=== PATIENT | male | born 1965 | race Caucasian/White ===

== ENCOUNTER 2017-07-27 21:35 | Inpatient (IN) | payer OTHER ==
--- NOTE | 2017-07-27 21:47 | PDOC ---
Rapid Medical Evaluation Chief Complaint: Back Pain Time Seen by Provider: 07/27/17 21:44 Medical Evaluation: Allergies Allergy/AdvReac Type Severity Reaction Status Date / Time No Known Allergies Allergy Verified 07/30/11 22:55 07/27/17 21:46 This is a 51 year old male with chronic EtOH abuse, depression, and Afib (no AC because of frequent falls) brought in by significant other with report of elevated liver enzymes and low platelets. Has also been having tremors and unsteady gait. + Jaundice + Asterixis + Unsteady gait V/s notable for BP 92/32 Labs including CBC, CMP, urine toxicology, acetaminophen, salicylates, TSH, B12 , Folate, Ammonia Head CT FALLS RISK 07/27/17 21:49 Discharge Disposition - Referrals Referrals: Frank Cosme MD [Primary Care Provider] - - Patient Instructions - Post Discharge Activity
[2017-07-27 21:52] VITALS: BMI 18.8
[2017-07-27] MEDS ORDERED: FOLIC ACID INJECTION - 1 MG, THIAMINE HCL 100 MG, MULTIVIT INJECTION ADULT 10 ML in SOD... IVPB ONE (22:03)
[2017-07-27 22:27] LABS: BASO % 0.2 % (0-2.0); EOS % 0.2 % (0-4.5); HEMATOCRIT 28.3 % (35.4-49); HEMOGLOBIN 9.6 GM/dL (11.7-16.9); LYMPH % 21.2 % (8-40); MCH 33.3 pg (25.7-33.7); MEAN PLT VOLUME 9.6 fl (7.5-11.1); MONO % 10.8 % (3.8-10.2); NEUT % 67.6 % (42.8-82.8); PLATELET COUNT 126 K/MM3 (134-434); RBC 2.89 M/mm3 (4.00-5.60); RDW 18.6 % (11.9-15.9); WHITE BLOOD COUNT 7.7 K/mm3 (4.0-10.0)
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
[2017-07-27 22:55] LABS: ALBUMIN 2.1 g/dl (3.4-5.0); ANION GAP 11 (8-16); BILIRUBIN,TOTAL 4.9 mg/dL (0.2-1.0); BLOOD UREA NITROGEN 9 mg/dL (7-18); CHLORIDE 90 mmol/L (98-107); CO2 28 mmol/L (21-32); CREATININE 1.1 mg/dL (0.7-1.3); GLUCOSE,RANDOM 110 mg/dL (74-106); POTASSIUM 3.6 mmol/L (3.5-5.1); SGOT/AST 124 U/L (15-37); SGPT/ALT 72 U/L (12-78); SODIUM 129 mmol/L (136-145); TOT PROT 6.4 g/dl (6.4-8.2)
[2017-07-27 22:56] LABS: ALK PHOS 530 U/L (45-117)
[2017-07-27 23:00] LABS: ACETAMINOPHEN < 2.0 ug/ml (10.0-30.0)
[2017-07-27 23:02] LABS: SALICYLATE < 4.0 mg/dl (0.0-30.0)
[2017-07-28] MEDS ORDERED: AZITHROMYCIN IVPB 500 MG in DEXTROSE 5%-WATER - 250 ML IVPB ONE (00:02)
[2017-07-28] MEDS ORDERED: cefTRIAXone 1 GM/50 ML BAG (PRE-DOCKED) IVPB ONE (00:02)
[2017-07-28] MEDS ORDERED: SODIUM CHLORIDE 0.9% 1000 ML INFUS.BAG IV ONE (00:20)
[2017-07-28] MEDS ORDERED: CEFTRIAXONE 1 GM/50 ML BAG ONE (00:22)
[2017-07-28] MEDS ORDERED: AZITHROMYCIN IVPB 250 ML IVPB ONE (00:22)
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
[2017-07-28 01:34] LABS: INR 1.04 (0.82-1.09); PROTHROMBIN TIME (PATIENT) 11.7 SEC (9.98-11.88)
--- NOTE | 2017-07-28 01:50 | PN ---
Teaching Attending Note Name of Resident: Vasile Costello ATTENDING PHYSICIAN STATEMENT I saw and evaluated the patient. I reviewed the resident's note and discussed the case with the resident. I agree with the resident's findings and plan as documented. SUBJECTIVE: 51year old male that presents to the ed accompanied by his due to jaundice and abnormal laboratory results OBJECTIVE: Vital Signs Temperature 98.5 F 07/27/17 21:45 Pulse Rate 97 H 07/27/17 21:45 Respiratory Rate 17 07/27/17 21:45 Blood Pressure 93/67 07/27/17 21:45 O2 Sat by Pulse Oximetry (%) 97 07/27/17 21:45 YES: Pupils equal, round and reactive to light, extraocular movements intact, sclera icteric, EARS, NOSE, THROAT: oropharynx clear without exudates. dry mucous membrane LUNGS: Breath sounds equal, clear to auscultation bilaterally. No wheezes, and no crackles. No accessory muscle use. HEART: s1s2 normal irregular ABDOMEN: Soft, nontender, not distended, normoactive bowel sounds, no guarding, no rebound, no masses. liver lower border palpable 2 finger below costal margin , visible veins present on flank. no spiderangioma UPPER EXTREMITIES: 2+ pulses, warm, no cordova erythema, no flapping tremors. LOWER EXTREMITIES: warm, well-perfused. No calf tenderness. No peripheral edema. ASSESSMENT AND PLAN: 1. Acute liver cirrhosis ( likley alcoholic ) - MELD 24 . - monitor LFT , BILI - PO prednisone - GI eval 2. Hyponatremia- hypovolemic vs beer potomania - will start IVF NS @75 - repeat sodium 3. Abnormal imaging of the lung suggestive of possible RLL pneumonia , aspiration ? - received rocephine and zithromax in ED 4. Chronic Encephalopathy - likely Wernicke - thiamine - folic acid See H&P for full details
[2017-07-28] MEDS ORDERED: predniSONE 20 MG TABLET (UD) PO ONE (01:53)
[2017-07-28] MEDS ORDERED: LIDOCAINE 5% TOPICAL PATCH TP ONE (02:15)
[2017-07-28] MEDS ORDERED: POTASSIUM CHLORIDE ORAL LIQUID 20 MEQ/15 ML PO ONE (02:20)
[2017-07-28] MEDS ORDERED: MAGNESIUM OXIDE 400 MG TABLET (FP) PO ONE (02:20)
[2017-07-28] MEDS ORDERED: BENZOCAINE/MENTH/CETYLPYRD CL 1 EACH LOZENGE MM PRN (03:50)
[2017-07-28] MEDS: SODIUM CHLORIDE 1,000 ML IV SCH (03:52)
[2017-07-28 08:41] LABS: BASO % 0.2 % (0-2.0); EOS % 0.1 % (0-4.5); HEMATOCRIT 25.4 % (35.4-49); HEMOGLOBIN 8.4 GM/dL (11.7-16.9); LYMPH % 13.2 % (8-40); MCH 32.6 pg (25.7-33.7); MCHC 33.3 g/dl (32.0-35.9); MEAN CELL VOLUME 98.1 fl (80-96); MEAN PLT VOLUME 9.1 fl (7.5-11.1); MONO % 6.3 % (3.8-10.2); NEUT % 80.2 % (42.8-82.8); PLATELET COUNT 81 K/MM3 (134-434); RBC 2.59 M/mm3 (4.00-5.60); WHITE BLOOD COUNT 3.2 K/mm3 (4.0-10.0)
[2017-07-28 08:43] LABS: ALBUMIN 1.7 g/dl (3.4-5.0); ANION GAP 7 (8-16); BLOOD UREA NITROGEN 6 mg/dL (7-18); CALCIUM 7.3 mg/dL (8.5-10.1); CHLORIDE 99 mmol/L (98-107); CO2 27 mmol/L (21-32); CREATININE 0.7 mg/dL (0.7-1.3); GLUCOSE,RANDOM 152 mg/dL (74-106); POTASSIUM 4.4 mmol/L (3.5-5.1); SGOT/AST 93 U/L (15-37); SGPT/ALT 56 U/L (12-78); SODIUM 133 mmol/L (136-145)
[2017-07-28 08:45] LABS: ALK PHOS 425 U/L (45-117); BILIRUBIN,TOTAL 4.9 mg/dL (0.2-1.0); TOT PROT 5.3 g/dl (6.4-8.2)
[2017-07-28 09:20] LABS: BILIRUBIN,DIRECT 3.9 mg/dL (0.0-0.2); MAGNESIUM 1.8 mg/dL (1.8-2.4)
[2017-07-28] MEDS ORDERED: PT OWN MED DRAWER 7, Y5N ONE ×2 (09:26→15:22)
[2017-07-28] MEDS: THIAMINE HCL 100 MG TABLET (FP) PO SCH (09:47)
[2017-07-28] MEDS: PANTOPRAZOLE SOD 40 MG SUSPENSION PACKET PO SCH (09:47)
--- NOTE | 2017-07-28 09:59 | EKG ---
Test Reason : Blood Pressure : / mmHG Vent. Rate : 083 BPM Atrial Rate : 083 BPM P-R Int : 132 ms QRS Dur : 094 ms QT Int : 402 ms P-R-T Axes : 073 054 065 degrees QTc Int : 472 ms NORMAL SINUS RHYTHM CANNOT RULE OUT ANTERIOR INFARCT , AGE UNDETERMINED ABNORMAL ECG WHEN COMPARED WITH ECG OF 29-NOV-2011 09:19, ANTERIOR INFARCT IS NOW PRESENT Confirmed by PATRICIA BAY, SIMBA ([id number]) on 07/28/2017 9:59:35 AM Referred By: Confirmed By:SIMBA GOMEZ MD
[2017-07-28] MEDS ORDERED: METOPROLOL TARTRATE 25 MG TABLET (FP) PO SCH (10:00)
[2017-07-28] MEDS ORDERED: guaiFENesin 200 MG/10 ML 10 ML UNIT-DOSE CUPS PO PRN (10:42)
[2017-07-28 11:44] LABS: URINE APPEARANCE CLEAR; URINE BILIRUBIN NEGATIVE (NEGATIVE); URINE BLOOD NEGATIVE (NEGATIVE); URINE COLOR YELLOW; URINE GLUCOSE (UA) 2+ (NEGATIVE); URINE KETONE NEGATIVE (NEGATIVE); URINE LEUK ESTERASE NEGATIVE (NEGATIVE); URINE NITRITE NEGATIVE (NEGATIVE); URINE PROTEIN NEGATIVE (NEGATIVE); URINE UROBILINOGEN 4.0 E.U/dl mg/dL (0.2-1.0)
[2017-07-28 12:06] LABS: INR 1.02 (0.82-1.09); PROTHROMBIN TIME (PATIENT) 11.5 SEC (9.98-11.88)
[2017-07-28 12:16] LABS: POTASSIUM 3.7 mmol/L (3.5-5.1)
[2017-07-28] MEDS: FOLIC ACID 1 MG TABLET (FP) PO SCH (12:19)
[2017-07-28] MEDS: CEFTRIAXONE 1 G/50 ML PREMIX 50 ML IVPB SCH (12:19)
[2017-07-28 12:38] LABS: COCAINE, UR NEGATIVE ng/ml (CUTOFF=300); METHADONE, UR NEGATIVE ng/ml (CUTOFF=300); OPIATES, URI NEGATIVE ng/ml (CUTOFF=300); PHENCYCLIDINE,URINE NEGATIVE ng/ml (CUTOFF=25); URINE AMPHETAMINES NEGATIVE ng/ml (CUTOFF=500); URINE BARBITURATES NEGATIVE ng/ml (CUTOFF=200)
[2017-07-28 12:40] LABS: URINE BENZODIAZEPINES POSITIVE ng/ml (CUTOFF=200)
--- NOTE | 2017-07-28 13:07 | CON.GI ---
Consult Consult Specialty:: GI Reason for Consultation:: Jaundice - History of Present Illness History of Present Illness: Chart reviewed. History by pt's SO. A 51 yom with ongoing history of alcohol abuse x 30 y and possible Wernicke encephalopathy who was brought to ED by his SO for jaundice. As per SO, the patient drinks beer daily and more recently, hard liquor. He became jaundiced with tremors after binge drinking on Jul 05. No fever, chills, nausea, or vomiting. No diarrhea, distended abdomen, melena, hematochezia, orhematemesis. Denies dysphagia, odynophagia, abdominal pain, altered bowels, pencil-thin, or ribbon-like stools, weight loss. Denies taking NSAIDs. No new medications. HAd EGD and colnoscopy 5 y ago, per SO, negative - History Source History Provided By: Patient, Friend (SO), Medical Record Limitations to Obtaining History: Clinical Condition - Alcohol/Substance Use Hx Alcohol Use: Yes - Smoking History Smoking history: Former smoker Have you smoked in the past 12 months: No Aproximately how many cigarettes per day: 0 If you are a former smoker, when did you quit?: Over 1 year ago Home Medications - Allergies Allergies/Adverse Reactions: Allergies Allergy/AdvReac Type Severity Reaction Status Date / Time No Known Allergies Allergy Verified 07/27/17 21:52 - Home Medications Home Medications: Ambulatory Orders Pt.Takes Meds, No List, Can'T Remember 11/29/11 Aspirin Coated [Ecotrin -] 81 mg PO DAILY #0 tablet.ec 12/06/11 Duloxetine [Cymbalta -] 60 mg PO DAILY #0 capsule. 12/06/11 Folic Acid - 1 mg PO DAILY #0 tablet 12/06/11 Lorazepam [Ativan] 0.5 mg PO BID PRN #0 tablet 12/06/11 Metoprolol Tartrate [Lopressor -] 25 mg PO BID #0 tab 12/06/11 Multivitamins [Multivit ([facility] Formulary)] 1 udtab PO DAILY #0 tab 12/06/11 Pantoprazole Sodium [Protonix -] 40 mg PO DAILY #0 tablet.ec 12/06/11 Potassium Chloride [K-Dur -] 40 meq PO DAILY #0 tablet.er 12/06/11 Family Disease History - Family Disease History Family History: Unremarkable (non-contributory) Review of Systems Findings/Remarks: As per HPI, H&P Physical Exam-GI Vital Signs: Vital Signs Temperature 98.6 F 07/28/17 06:00 Pulse Rate 77 07/28/17 06:00 Respiratory Rate 18 07/28/17 06:00 Blood Pressure 128/79 07/28/17 06:00 O2 Sat by Pulse Oximetry (%) 97 07/28/17 03:11 Constitutional: Yes: Calm, Pallor Eyes: Yes: Sclera Icterus HENT: Yes: Atraumatic Neck: Yes: Supple Cardiovascular: Yes: Regular Rate and Rhythm Respiratory: Yes: Regular Gastrointestinal Inspection: No: Ascites, Distention ...Auscultate: Yes: Normoactive Bowel Sounds ...Palpate: Yes: Soft. No: Firm/Rigid, Guarding, Mass, Tenderness, Tenderness, Epigastium, Tenderness, Rebound ...Percussion: No: Fluid Wave ...Rectal Exam: Yes: Guaiac Negative Edema: No Neurological: Yes: Asterixis, Tremors Labs: CBC, BMP 07/28/17 07:43 07/28/17 11:06 INR, PTT INR 1.02 (0.82-1.09) 07/28/17 11:30 Laboratory Tests 07/27/17 07/27/17 07/27/17 21:53 21:53 21:53 WBC 7.7 D RBC 2.89 L D Hgb 9.6 L D Hct 28.3 L D MCV 98.0 H MCH 33.3 MCHC 34.0 RDW 18.6 H D Plt Count 126 L D MPV 9.6 Neutrophils % 67.6 Lymphocytes % 21.2 D Monocytes % 10.8 H Eosinophils % 0.2 D Basophils % 0.2 PT with INR INR Sodium 129 L D Potassium 3.6 D Chloride 90 L D Carbon Dioxide 28 Anion Gap 11 BUN 9 Creatinine 1.1 D Creat Clearance w eGFR > 60 Random Glucose 110 H Serum Osmolality Calcium 8.0 L Magnesium Total Bilirubin 4.9 H D Direct Bilirubin AST 124 H D ALT 72 D Alkaline Phosphatase 530 H D Ammonia 17.69 Total Protein 6.4 Albumin 2.1 L D Vitamin B12 TSH Urine Color Urine Appearance Urine pH Ur Specific [place] Urine Protein Urine Glucose (UA) Urine Ketones Urine Blood Urine Nitrite Urine Bilirubin Urine Urobilinogen Ur Leukocyte Esterase Urine Osmolality Salicylates Opiates Screen Methadone Screen Acetaminophen Barbiturate Screen Phencyclidine Screen Ur Amphetamines Screen MDMA (Ecstasy) Screen Benzodiazepines Screen Cocaine Screen U Marijuana (THC) Screen Alcohol, Quantitative Blood Type Antibody Screen 07/27/17 07/27/17 07/27/17 21:53 21:53 21:53 WBC RBC Hgb Hct MCV MCH MCHC RDW Plt Count MPV Neutrophils % Lymphocytes % Monocytes % Eosinophils % Basophils % PT with INR INR Sodium Potassium Chloride Carbon Dioxide Anion Gap BUN Creatinine Creat Clearance w eGFR Random Glucose Serum Osmolality Calcium Magnesium Total Bilirubin Direct Bilirubin AST ALT Alkaline Phosphatase Ammonia Total Protein Albumin Vitamin B12 1572 H TSH 1.68 Urine Color Urine Appearance Urine pH Ur Specific [place] Urine Protein Urine Glucose (UA) Urine Ketones Urine Blood Urine Nitrite Urine Bilirubin Urine Urobilinogen Ur Leukocyte Esterase Urine Osmolality Salicylates < 4.0 Opiates Screen Methadone Screen Acetaminophen < 2.0 L Barbiturate Screen Phencyclidine Screen Ur Amphetamines Screen MDMA (Ecstasy) Screen Benzodiazepines Screen Cocaine Screen U Marijuana (THC) Screen Alcohol, Quantitative < 5.0 Blood Type Antibody Screen 07/28/17 07/28/17 07/28/17 01:07 01:07 01:07 WBC RBC Hgb Hct MCV MCH MCHC RDW Plt Count MPV Neutrophils % Lymphocytes % Monocytes % Eosinophils % Basophils % PT with INR 11.70 INR 1.04 Sodium Potassium Chloride Carbon Dioxide Anion Gap BUN Creatinine Creat Clearance w eGFR Random Glucose Serum Osmolality Calcium Magnesium 1.7 L D Total Bilirubin Direct Bilirubin AST ALT Alkaline Phosphatase Ammonia Total Protein Albumin Vitamin B12 TSH Urine Color Urine Appearance Urine pH Ur Specific [place] Urine Protein Urine Glucose (UA) Urine Ketones Urine Blood Urine Nitrite Urine Bilirubin Urine Urobilinogen Ur Leukocyte Esterase Urine Osmolality Salicylates Opiates Screen Methadone Screen Acetaminophen Barbiturate Screen Phencyclidine Screen Ur Amphetamines Screen MDMA (Ecstasy) Screen Benzodiazepines Screen Cocaine Screen U Marijuana (THC) Screen Alcohol, Quantitative Blood Type O POSITIVE Antibody Screen Negative 07/28/17 07/28/17 07/28/17 01:07 07:43 07:43 WBC 3.2 L D RBC 2.59 L Hgb 8.4 L D Hct 25.4 L MCV 98.1 H MCH 32.6 MCHC 33.3 RDW 18.0 H Plt Count 81 L D MPV 9.1 Neutrophils % 80.2 Lymphocytes % 13.2 D Monocytes % 6.3 Eosinophils % 0.1 Basophils % 0.2 PT with INR INR Sodium 133 L Potassium 4.4 D Chloride 99 Carbon Dioxide 27 Anion Gap 7 L BUN 6 L D Creatinine 0.7 D Creat Clearance w eGFR > 60 Random Glucose 152 H D Serum Osmolality 270 L Calcium 7.3 L Magnesium 1.8 Total Bilirubin 5.0 H 4.9 H Direct Bilirubin 3.9 H D AST 93 H D ALT 56 D Alkaline Phosphatase 425 H Ammonia Total Protein 5.3 L Albumin 1.7 L Vitamin B12 TSH Urine Color Urine Appearance Urine pH Ur Specific [place] Urine Protein Urine Glucose (UA) Urine Ketones Urine Blood Urine Nitrite Urine Bilirubin Urine Urobilinogen Ur Leukocyte Esterase Urine Osmolality Salicylates Opiates Screen Methadone Screen Acetaminophen Barbiturate Screen Phencyclidine Screen Ur Amphetamines Screen MDMA (Ecstasy) Screen Benzodiazepines Screen Cocaine Screen U Marijuana (THC) Screen Alcohol, Quantitative Blood Type Antibody Screen 07/28/17 07/28/17 07/28/17 07:43 10:30 10:30 WBC RBC Hgb Hct MCV MCH MCHC RDW Plt Count MPV Neutrophils % Lymphocytes % Monocytes % Eosinophils % Basophils % PT with INR INR Sodium Potassium Chloride Carbon Dioxide Anion Gap BUN Creatinine Creat Clearance w eGFR Random Glucose Serum Osmolality Calcium Magnesium Cancelled Total Bilirubin Direct Bilirubin Cancelled AST ALT Alkaline Phosphatase Ammonia Total Protein Albumin Vitamin B12 TSH Urine Color Yellow Urine Appearance Clear Urine pH 6.0 Ur Specific [place] 1.005 Urine Protein Negative Urine Glucose (UA) 2+ H Urine Ketones Negative Urine Blood Negative Urine Nitrite Negative Urine Bilirubin Negative Urine Urobilinogen 4.0 e.u/dl Ur Leukocyte Esterase Negative Urine Osmolality Salicylates Opiates Screen Negative Methadone Screen Negative Acetaminophen Barbiturate Screen Negative Phencyclidine Screen Negative Ur Amphetamines Screen Negative MDMA (Ecstasy) Screen Negative Benzodiazepines Screen Positive Cocaine Screen Negative U Marijuana (THC) Screen Negative Alcohol, Quantitative Blood Type Antibody Screen 07/28/17 07/28/17 11:06 11:30 WBC RBC Hgb Hct MCV MCH MCHC RDW Plt Count MPV Neutrophils % Lymphocytes % Monocytes % Eosinophils % Basophils % PT with INR 11.50 INR 1.02 Sodium 132 L Potassium 3.7 Chloride 101 Carbon Dioxide 26 Anion Gap BUN Creatinine Creat Clearance w eGFR Random Glucose Serum Osmolality Calcium Magnesium Total Bilirubin Direct Bilirubin AST ALT Alkaline Phosphatase Ammonia Total Protein Albumin Vitamin B12 TSH Urine Color Urine Appearance Urine pH Ur Specific [place] Urine Protein Urine Glucose (UA) Urine Ketones Urine Blood Urine Nitrite Urine Bilirubin Urine Urobilinogen Ur Leukocyte Esterase Urine Osmolality 168 L Salicylates Opiates Screen Methadone Screen Acetaminophen Barbiturate Screen Phencyclidine Screen Ur Amphetamines Screen MDMA (Ecstasy) Screen Benzodiazepines Screen Cocaine Screen U Marijuana (THC) Screen Alcohol, Quantitative Blood Type Antibody Screen Imaging - Results Ultrasound: Report Reviewed Problem List - Problems (1) Wernicke encephalopathy Code(s): E51.2 - WERNICKE'S ENCEPHALOPATHY (2) Alcoholic hepatitis Code(s): K70.10 - ALCOHOLIC HEPATITIS WITHOUT ASCITES (3) Alcohol use disorder Code(s): F10.99 - ALCOHOL USE, UNSP WITH UNSPECIFIED ALCOHOL-INDUCED DISORDER (4) Jaundice Code(s): R17 - UNSPECIFIED JAUNDICE (5) Malnourished Code(s): E46 - UNSPECIFIED PROTEIN-CALORIE MALNUTRITION Assessment/Plan A 51 yom with chronic, ongoing alcohol abuse x 30 years and short term memory loss. Admitted with acute jaundice and grade I-II encephalopathy ?chronicity. Mixed cholestasis with hepatitis. Normal pt, cr. Macrocytic, normoachromic anemia and low plt count. May be related to ETOH-bone marrow suppression and/or liver cirrhosis. His SO, although very protective and involved, may be unintentionally enabling the patient to continue his alcohol habbit (downplays daily beer use, has "account" at a local bar). Counseling. Pt and SO Withdrawal protocol MRI/MRCP abdomen w/wo, AFP Agree with steroids for possible acute alcoholic hepatitis Viral hepatitis panel EGD to survey for esophagogastric varices
[2017-07-28] MEDS ORDERED: LIDOCAINE PATCH REMOVAL MC ONE (16:00)
[2017-07-28] MEDS: AZITHROMYCIN IVPB 500 MG in DEXTROSE 5%-WATER - 250 ML IVPB SCH (16:42)
--- NOTE | 2017-07-28 16:59 | PN ---
Teaching Attending Note Name of Resident: Rafael Sierra ATTENDING PHYSICIAN STATEMENT Time of evaluation: 11:10 AM I saw and evaluated the patient. I reviewed the resident's note and discussed the case with the resident. I agree with the resident's findings and plan as documented. SUBJECTIVE: patient seen and examined. denies any nausea, vomiting, abdominal pain, diarrhea , dark or bloody stools. Significant other at bedside, reports short term memory loss known from prior. reports ETOH binge a week ago, recently cut down back. Has been turning yellow over the last week. Has been having a beer a day for last few days but binge drinking over the week prior. Has cough over last few days, subjective fevers/chills. No dyspnea or chest pain. OBJECTIVE: Vital Signs Period Temp Pulse Resp BP Sys/[place] Pulse Ox Last 24 Hr 98.5 F-98.6 F 76-100 17-18 93-128/67-79 97-97 Intake & Output 07/25/17 07/26/17 07/27/17 07/28/17 23:59 23:59 23:59 23:59 Intake Total 475 Balance 475 Weight 135 lb 135 lb 7 oz general; positive icterus, lying in bed in no acute distress Abdomen: soft, NT, ND, hepatomegaly appreciated, no tenderness along the hepatic margin. Extremities: no edema, coarse tremors worsened with finger nose test but no past pointing (known from prior per significant other) chest: unable to appreciate rales on exam, good air entry, no wheezing neuro: AAOx2, facial symmetry, power 5/5 tremors as above, no pronator drift Home Medication List Medication Instructions Recorded Confirmed Type Pt.Takes Meds, No List, Can'T 11/29/11 11/29/11 History Remember Active Medications Generic Name Dose Route Start Last Admin Trade Name Freq PRN Reason Stop Dose Admin Benzocaine/Menthol 1 each 07/28/17 03:50 Cepacol Lozenge - MM PRN PRN SORE THROAT Folic Acid 1 mg 07/28/17 12:00 07/28/17 12:19 Folic Acid - PO 1 mg DAILY NIMA Administration Guaifenesin 10 ml 07/28/17 10:42 Robitussin - PO Q6H PRN COUGH Sodium Chloride 1,000 mls @ 75 mls/hr 07/28/17 02:00 07/28/17 03:52 Normal Saline - IV 75 mls/hr ASDIR NIMA Administration Azithromycin 500 mg/ Dextrose 250 mls @ 250 mls/hr 07/28/17 10:45 07/28/17 16 :42 IVPB 250 mls/hr DAILY NIMA Administration CEFTRIAXONE 1 G/50 ML PREMIX 50 mls @ 100 mls/hr 07/28/17 10:45 07/28/17 12: 19 Ceftriaxone 1 Gm-D5w Bag IVPB 100 mls/hr DAILY NIMA Administration Metoprolol Tartrate 25 mg 07/28/17 10:00 07/28/17 09:47 Lopressor - PO 25 mg BID NIMA Administration Pantoprazole Sodium 40 mg 07/28/17 10:00 07/28/17 09:47 Protonix Packets For Oral Suspension - PO 40 mg DAILY NIMA Administration Thiamine HCl 100 mg 07/28/17 10:00 07/28/17 09:47 Vitamin B1 - PO 100 mg DAILY NIMA Administration Laboratory Results - last 24 hr 07/27/17 07/27/17 07/27/17 21:53 21:53 21:53 WBC 7.7 D RBC 2.89 L D Hgb 9.6 L D Hct 28.3 L D MCV 98.0 H MCH 33.3 MCHC 34.0 RDW 18.6 H D Plt Count 126 L D MPV 9.6 Neutrophils % 67.6 Lymphocytes % 21.2 D Monocytes % 10.8 H Eosinophils % 0.2 D Basophils % 0.2 PT with INR INR Sodium 129 L D Potassium 3.6 D Chloride 90 L D Carbon Dioxide 28 Anion Gap 11 BUN 9 Creatinine 1.1 D Creat Clearance w eGFR > 60 Random Glucose 110 H Serum Osmolality Calcium 8.0 L Magnesium Total Bilirubin 4.9 H D Direct Bilirubin AST 124 H D ALT 72 D Alkaline Phosphatase 530 H D Ammonia 17.69 Total Protein 6.4 Albumin 2.1 L D Vitamin B12 TSH Urine Color Urine Appearance Urine pH Ur Specific [place] Urine Protein Urine Glucose (UA) Urine Ketones Urine Blood Urine Nitrite Urine Bilirubin Urine Urobilinogen Ur Leukocyte Esterase Urine Osmolality Salicylates Opiates Screen Methadone Screen Acetaminophen Barbiturate Screen Phencyclidine Screen Ur Amphetamines Screen MDMA (Ecstasy) Screen Benzodiazepines Screen Cocaine Screen U Marijuana (THC) Screen Alcohol, Quantitative Blood Type Antibody Screen 07/27/17 07/27/17 07/27/17 21:53 21:53 21:53 WBC RBC Hgb Hct MCV MCH MCHC RDW Plt Count MPV Neutrophils % Lymphocytes % Monocytes % Eosinophils % Basophils % PT with INR INR Sodium Potassium Chloride Carbon Dioxide Anion Gap BUN Creatinine Creat Clearance w eGFR Random Glucose Serum Osmolality Calcium Magnesium Total Bilirubin Direct Bilirubin AST ALT Alkaline Phosphatase Ammonia Total Protein Albumin Vitamin B12 1572 H TSH 1.68 Urine Color Urine Appearance Urine pH Ur Specific [place] Urine Protein Urine Glucose (UA) Urine Ketones Urine Blood Urine Nitrite Urine Bilirubin Urine Urobilinogen Ur Leukocyte Esterase Urine Osmolality Salicylates < 4.0 Opiates Screen Methadone Screen Acetaminophen < 2.0 L Barbiturate Screen Phencyclidine Screen Ur Amphetamines Screen MDMA (Ecstasy) Screen Benzodiazepines Screen Cocaine Screen U Marijuana (THC) Screen Alcohol, Quantitative < 5.0 Blood Type Antibody Screen 07/28/17 07/28/17 07/28/17 01:07 01:07 01:07 WBC RBC Hgb Hct MCV MCH MCHC RDW Plt Count MPV Neutrophils % Lymphocytes % Monocytes % Eosinophils % Basophils % PT with INR 11.70 INR 1.04 Sodium Potassium Chloride Carbon Dioxide Anion Gap BUN Creatinine Creat Clearance w eGFR Random Glucose Serum Osmolality Calcium Magnesium 1.7 L D Total Bilirubin Direct Bilirubin AST ALT Alkaline Phosphatase Ammonia Total Protein Albumin Vitamin B12 TSH Urine Color Urine Appearance Urine pH Ur Specific [place] Urine Protein Urine Glucose (UA) Urine Ketones Urine Blood Urine Nitrite Urine Bilirubin Urine Urobilinogen Ur Leukocyte Esterase Urine Osmolality Salicylates Opiates Screen Methadone Screen Acetaminophen Barbiturate Screen Phencyclidine Screen Ur Amphetamines Screen MDMA (Ecstasy) Screen Benzodiazepines Screen Cocaine Screen U Marijuana (THC) Screen Alcohol, Quantitative Blood Type O POSITIVE Antibody Screen Negative 07/28/17 07/28/17 07/28/17 01:07 07:43 07:43 WBC 3.2 L D RBC 2.59 L Hgb 8.4 L D Hct 25.4 L MCV 98.1 H MCH 32.6 MCHC 33.3 RDW 18.0 H Plt Count 81 L D MPV 9.1 Neutrophils % 80.2 Lymphocytes % 13.2 D Monocytes % 6.3 Eosinophils % 0.1 Basophils % 0.2 PT with INR INR Sodium 133 L Potassium 4.4 D Chloride 99 Carbon Dioxide 27 Anion Gap 7 L BUN 6 L D Creatinine 0.7 D Creat Clearance w eGFR > 60 Random Glucose 152 H D Serum Osmolality 270 L Calcium 7.3 L Magnesium 1.8 Total Bilirubin 5.0 H 4.9 H Direct Bilirubin 3.9 H D AST 93 H D ALT 56 D Alkaline Phosphatase 425 H Ammonia Total Protein 5.3 L Albumin 1.7 L Vitamin B12 TSH Urine Color Urine Appearance Urine pH Ur Specific [place] Urine Protein Urine Glucose (UA) Urine Ketones Urine Blood Urine Nitrite Urine Bilirubin Urine Urobilinogen Ur Leukocyte Esterase Urine Osmolality Salicylates Opiates Screen Methadone Screen Acetaminophen Barbiturate Screen Phencyclidine Screen Ur Amphetamines Screen MDMA (Ecstasy) Screen Benzodiazepines Screen Cocaine Screen U Marijuana (THC) Screen Alcohol, Quantitative Blood Type Antibody Screen 07/28/17 07/28/17 07/28/17 07:43 10:30 10:30 WBC RBC Hgb Hct MCV MCH MCHC RDW Plt Count MPV Neutrophils % Lymphocytes % Monocytes % Eosinophils % Basophils % PT with INR INR Sodium Potassium Chloride Carbon Dioxide Anion Gap BUN Creatinine Creat Clearance w eGFR Random Glucose Serum Osmolality Calcium Magnesium Cancelled Total Bilirubin Direct Bilirubin Cancelled AST ALT Alkaline Phosphatase Ammonia Total Protein Albumin Vitamin B12 TSH Urine Color Yellow Urine Appearance Clear Urine pH 6.0 Ur Specific [place] 1.005 Urine Protein Negative Urine Glucose (UA) 2+ H Urine Ketones Negative Urine Blood Negative Urine Nitrite Negative Urine Bilirubin Negative Urine Urobilinogen 4.0 e.u/dl Ur Leukocyte Esterase Negative Urine Osmolality Salicylates Opiates Screen Negative Methadone Screen Negative Acetaminophen Barbiturate Screen Negative Phencyclidine Screen Negative Ur Amphetamines Screen Negative MDMA (Ecstasy) Screen Negative Benzodiazepines Screen Positive Cocaine Screen Negative U Marijuana (THC) Screen Negative Alcohol, Quantitative Blood Type Antibody Screen 07/28/17 07/28/17 11:06 11:30 WBC RBC Hgb Hct MCV MCH MCHC RDW Plt Count MPV Neutrophils % Lymphocytes % Monocytes % Eosinophils % Basophils % PT with INR 11.50 INR 1.02 Sodium 132 L Potassium 3.7 Chloride 101 Carbon Dioxide 26 Anion Gap BUN Creatinine Creat Clearance w eGFR Random Glucose Serum Osmolality Calcium Magnesium Total Bilirubin Direct Bilirubin AST ALT Alkaline Phosphatase Ammonia Total Protein Albumin Vitamin B12 TSH Urine Color Urine Appearance Urine pH Ur Specific [place] Urine Protein Urine Glucose (UA) Urine Ketones Urine Blood Urine Nitrite Urine Bilirubin Urine Urobilinogen Ur Leukocyte Esterase Urine Osmolality 168 L Salicylates Opiates Screen Methadone Screen Acetaminophen Barbiturate Screen Phencyclidine Screen Ur Amphetamines Screen MDMA (Ecstasy) Screen Benzodiazepines Screen Cocaine Screen U Marijuana (THC) Screen Alcohol, Quantitative Blood Type Antibody Screen CXR - segmental RLL PNA MRI abdomen pending ASSESSMENT AND PLAN: 51 yom with ETOH abuse, short term memory loss, suspected underlying Wernicke's encephalopathy comes with ETOH binge a week ago, progressive jaundice and found with likely acute alcoholic hepatitis -Likely acute alcoholic hepatitis with hyperbilirubinemia/thrombocytopenia -Suspected underlying Wernicke's encephalopathy -Hyponatremia, hypovolumic vs beer potomania -RLL CAP vs aspiration from ETOH abuse -h/o Atrial fibrillation not on AC -Macrocytic anemia -Depression -Chronic back pain Plan: GI consulted. Presentation likely from acute alcoholic hepatitis and associated bone marrow suppression. R/o alternative etiologies. Check MRI abdomen. Follow up viral panel. Discussed with Dr. Gilbert, place on steroids if Hep viral panel neg. Monitor for bleed, continue PPI. Continue gentle hydration for now. LFts improved but worsening hematological markers, ?bone suppression ETOH related. Cough with subjective fevers at home and RLL infiltrate. patient high risk. ' Will place on ceftriaxone/azithromycin, sputum cultures if available. Check influenza swab but low suspicion given presentation. Continue metoprolol. Confirm home meds. No s/s of active withdrawal currently, monitor for now. DVTPPX with SCDs given thrombocytopenia. Continue folate/thiamine. Dispo pending improvement in symptoms. Plan discussed with patient and signficant other at bedside in detail, all questions answered.
--- NOTE | 2017-07-28 18:20 | HOSP ---
Physical Examination Vital Signs: Vital Signs Temperature 98.5 F 07/28/17 15:39 Pulse Rate 76 07/28/17 15:39 Respiratory Rate 18 07/28/17 15:39 Blood Pressure 120/75 07/28/17 15:39 O2 Sat by Pulse Oximetry (%) 97 07/28/17 03:11 Labs: CBC, BMP 07/28/17 07:43 07/28/17 11:06 Hospitalist Encounter Assessment: Per significant other Arpita Dallas, she is the HCP. Sister in agreement with same. Arpita asked to bring in HCP document.To bring in the morning. Ms. Tavares mentioned patient is on Xanax 2mg HS for sleep and Ativan 1mg BID for sleep. Called [facility] pharmacy where patient picks up the medication. On confirming, patient hasn't picked up since 2014 in [facility] ; [facility] since 2015. On admission, urine toxicity was positive for Benzodiazepine, he had not received any benzos at the hospital at that time. When this information was relayed, Ms. Tavares said she had few prescriptions left from previous and has been giving it to the patient. Tried calling patients Psychiatrist Dr. Melgar ) to confirm his medications, but his office is closed. Will -reattempt to reach when office opens. Given patient reportedly on benzos at home though unable to confirm with pharmacy, utox positive for benzos. So to avoid life threatening benzo withdrawal, will place on low dose ativan and plan to taper off eventually if unable to confirm the same with psychiatrist. Will request Clarisse to clarify about the HCP. Case discussed with Dr. Oliva and [employer]. Visit type - Emergency Visit Emergency Visit: Yes ED Registration Date: 07/28/17 Care time: The patient presented to the Emergency Department on the above date and was hospitalized for further evaluation of their emergent condition. - New Patient This patient is new to me today: Yes Date on this admission: 07/28/17 - Critical Care Critical Care patient: No
--- NOTE | 2017-07-28 20:01 | PN ---
Physical Exam: SUBJECTIVE: Patient seen and examined. Most of the history taken by his significant other. She reports short term memory loss in the last 5 years. She states patient recently went on an alcohol binge a week ago after cutting down on alcohol for the last few months. She said she has been noticing yellowing of his skin over the last week. She also states patient has been coughing over the last week with subjective fever. She denies nausea, vomiting , diarrhea, dark stools, dizziness, chest pain, abdominal pain, dysuria. OBJECTIVE: Vital Signs Period Temp Pulse Resp BP Sys/Hutson Pulse Ox Last 24 Hr 98.5 F-98.6 F 76-100 17-18 93-128/67-79 97-97 GENERAL: A/o x 2, in no acute distress HEAD: Normal with no signs of trauma. EYES: scleral icterus, PERRL, extraocular movements intact ENT: oropharynx clear without exudates, moist mucous membranes. NECK: supple. LUNGS: Breath sounds equal, clear to auscultation bilaterally, no wheezes, no crackles, no accessory muscle use. HEART: Regular rate and rhythm, S1, S2 without murmur, rub or gallop. ABDOMEN: Soft, nontender, nondistended, normoactive bowel sounds, no guarding, no rebound, no hepatomegaly EXTREMITIES: Tremors worsened with finger to nose test (chronic as per significant other), 2+ pulses, no edema, no asterixes NEUROLOGICAL: Cranial nerves II through XII grossly intact. Normal speech, gait not observed. PSYCH: Normal mood, normal affect. Laboratory Results - last 24 hr 07/27/17 07/27/17 07/27/17 21:53 21:53 21:53 WBC 7.7 D RBC 2.89 L D Hgb 9.6 L D Hct 28.3 L D MCV 98.0 H MCH 33.3 MCHC 34.0 RDW 18.6 H D Plt Count 126 L D MPV 9.6 Neutrophils % 67.6 Lymphocytes % 21.2 D Monocytes % 10.8 H Eosinophils % 0.2 D Basophils % 0.2 PT with INR INR Sodium 129 L D Potassium 3.6 D Chloride 90 L D Carbon Dioxide 28 Anion Gap 11 BUN 9 Creatinine 1.1 D Creat Clearance w eGFR > 60 Random Glucose 110 H Serum Osmolality Calcium 8.0 L Magnesium Total Bilirubin 4.9 H D Direct Bilirubin AST 124 H D ALT 72 D Alkaline Phosphatase 530 H D Ammonia 17.69 Total Protein 6.4 Albumin 2.1 L D Vitamin B12 TSH Urine Color Urine Appearance Urine pH Ur Specific [place] Urine Protein Urine Glucose (UA) Urine Ketones Urine Blood Urine Nitrite Urine Bilirubin Urine Urobilinogen Ur Leukocyte Esterase Urine Osmolality Salicylates Opiates Screen Methadone Screen Acetaminophen Barbiturate Screen Phencyclidine Screen Ur Amphetamines Screen MDMA (Ecstasy) Screen Benzodiazepines Screen Cocaine Screen U Marijuana (THC) Screen Alcohol, Quantitative Blood Type Antibody Screen 07/27/17 07/27/17 07/27/17 21:53 21:53 21:53 WBC RBC Hgb Hct MCV MCH MCHC RDW Plt Count MPV Neutrophils % Lymphocytes % Monocytes % Eosinophils % Basophils % PT with INR INR Sodium Potassium Chloride Carbon Dioxide Anion Gap BUN Creatinine Creat Clearance w eGFR Random Glucose Serum Osmolality Calcium Magnesium Total Bilirubin Direct Bilirubin AST ALT Alkaline Phosphatase Ammonia Total Protein Albumin Vitamin B12 1572 H TSH 1.68 Urine Color Urine Appearance Urine pH Ur Specific [place] Urine Protein Urine Glucose (UA) Urine Ketones Urine Blood Urine Nitrite Urine Bilirubin Urine Urobilinogen Ur Leukocyte Esterase Urine Osmolality Salicylates < 4.0 Opiates Screen Methadone Screen Acetaminophen < 2.0 L Barbiturate Screen Phencyclidine Screen Ur Amphetamines Screen MDMA (Ecstasy) Screen Benzodiazepines Screen Cocaine Screen U Marijuana (THC) Screen Alcohol, Quantitative < 5.0 Blood Type Antibody Screen 07/28/17 07/28/17 07/28/17 01:07 01:07 01:07 WBC RBC Hgb Hct MCV MCH MCHC RDW Plt Count MPV Neutrophils % Lymphocytes % Monocytes % Eosinophils % Basophils % PT with INR 11.70 INR 1.04 Sodium Potassium Chloride Carbon Dioxide Anion Gap BUN Creatinine Creat Clearance w eGFR Random Glucose Serum Osmolality Calcium Magnesium 1.7 L D Total Bilirubin Direct Bilirubin AST ALT Alkaline Phosphatase Ammonia Total Protein Albumin Vitamin B12 TSH Urine Color Urine Appearance Urine pH Ur Specific [place] Urine Protein Urine Glucose (UA) Urine Ketones Urine Blood Urine Nitrite Urine Bilirubin Urine Urobilinogen Ur Leukocyte Esterase Urine Osmolality Salicylates Opiates Screen Methadone Screen Acetaminophen Barbiturate Screen Phencyclidine Screen Ur Amphetamines Screen MDMA (Ecstasy) Screen Benzodiazepines Screen Cocaine Screen U Marijuana (THC) Screen Alcohol, Quantitative Blood Type O POSITIVE Antibody Screen Negative 07/28/17 07/28/17 07/28/17 01:07 07:43 07:43 WBC 3.2 L D RBC 2.59 L Hgb 8.4 L D Hct 25.4 L MCV 98.1 H MCH 32.6 MCHC 33.3 RDW 18.0 H Plt Count 81 L D MPV 9.1 Neutrophils % 80.2 Lymphocytes % 13.2 D Monocytes % 6.3 Eosinophils % 0.1 Basophils % 0.2 PT with INR INR Sodium 133 L Potassium 4.4 D Chloride 99 Carbon Dioxide 27 Anion Gap 7 L BUN 6 L D Creatinine 0.7 D Creat Clearance w eGFR > 60 Random Glucose 152 H D Serum Osmolality 270 L Calcium 7.3 L Magnesium 1.8 Total Bilirubin 5.0 H 4.9 H Direct Bilirubin 3.9 H D AST 93 H D ALT 56 D Alkaline Phosphatase 425 H Ammonia Total Protein 5.3 L Albumin 1.7 L Vitamin B12 TSH Urine Color Urine Appearance Urine pH Ur Specific [place] Urine Protein Urine Glucose (UA) Urine Ketones Urine Blood Urine Nitrite Urine Bilirubin Urine Urobilinogen Ur Leukocyte Esterase Urine Osmolality Salicylates Opiates Screen Methadone Screen Acetaminophen Barbiturate Screen Phencyclidine Screen Ur Amphetamines Screen MDMA (Ecstasy) Screen Benzodiazepines Screen Cocaine Screen U Marijuana (THC) Screen Alcohol, Quantitative Blood Type Antibody Screen 07/28/17 07/28/17 07/28/17 07:43 10:30 10:30 WBC RBC Hgb Hct MCV MCH MCHC RDW Plt Count MPV Neutrophils % Lymphocytes % Monocytes % Eosinophils % Basophils % PT with INR INR Sodium Potassium Chloride Carbon Dioxide Anion Gap BUN Creatinine Creat Clearance w eGFR Random Glucose Serum Osmolality Calcium Magnesium Cancelled Total Bilirubin Direct Bilirubin Cancelled AST ALT Alkaline Phosphatase [place]monia Total Protein Albumin Vitamin B12 TSH Urine Color Yellow Urine Appearance Clear Urine pH 6.0 Ur Specific [place] 1.005 Urine Protein Negative Urine Glucose (UA) 2+ H Urine Ketones Negative Urine Blood Negative Urine Nitrite Negative Urine Bilirubin Negative Urine Urobilinogen 4.0 e.u/dl Ur Leukocyte Esterase Negative Urine Osmolality Salicylates Opiates Screen Negative Methadone Screen Negative Acetaminophen Barbiturate Screen Negative Phencyclidine Screen Negative Ur Amphetamines Screen Negative MDMA (Ecstasy) Screen Negative Benzodiazepines Screen Positive Cocaine Screen Negative U Marijuana (THC) Screen Negative Alcohol, Quantitative Blood Type Antibody Screen 07/28/17 07/28/17 11:06 11:30 WBC RBC Hgb Hct MCV MCH MCHC RDW Plt Count MPV Neutrophils % Lymphocytes % Monocytes % Eosinophils % Basophils % PT with INR 11.50 INR 1.02 Sodium 132 L Potassium 3.7 Chloride 101 Carbon Dioxide 26 Anion Gap BUN Creatinine Creat Clearance w eGFR Random Glucose Serum Osmolality Calcium Magnesium Total Bilirubin Direct Bilirubin AST ALT Alkaline Phosphatase [place]monia Total Protein Albumin Vitamin B12 TSH Urine Color Urine Appearance Urine pH Ur Specific [place] Urine Protein Urine Glucose (UA) Urine Ketones Urine Blood Urine Nitrite Urine Bilirubin Urine Urobilinogen Ur Leukocyte Esterase Urine Osmolality 168 L Salicylates Opiates Screen Methadone Screen Acetaminophen Barbiturate Screen Phencyclidine Screen Ur Amphetamines Screen MDMA (Ecstasy) Screen Benzodiazepines Screen Cocaine Screen U Marijuana (THC) Screen Alcohol, Quantitative Blood Type Antibody Screen Active Medications Generic Name Dose Route Start Last Admin Trade Name Freq PRN Reason Stop Dose Admin Benzocaine/Menthol 1 each 07/28/17 03:50 Cepacol Lozenge - MM PRN PRN SORE THROAT Folic Acid 1 mg 07/28/17 12:00 07/28/17 12:19 Folic Acid - PO 1 mg DAILY NIMA Administration Guaifenesin 10 ml 07/28/17 10:42 Robitussin - PO Q6H PRN COUGH Sodium Chloride 1,000 mls @ 75 mls/hr 07/28/17 02:00 07/28/17 03:52 Normal Saline - IV 75 mls/hr ASDIR NIMA Administration Azithromycin 500 mg/ Dextrose 250 mls @ 250 mls/hr 07/28/17 10:45 07/28/17 16 :42 IVPB 250 mls/hr DAILY NIMA Administration CEFTRIAXONE 1 G/50 ML PREMIX 50 mls @ 100 mls/hr 07/28/17 10:45 07/28/17 12: 19 Ceftriaxone 1 Gm-D5w Bag IVPB 100 mls/hr DAILY NIMA Administration Lorazepam 0.5 mg 07/28/17 22:00 Ativan - PO BID NIMA Metoprolol Tartrate 25 mg 07/28/17 10:00 07/28/17 09:47 Lopressor - PO 25 mg BID NIMA Administration Pantoprazole Sodium 40 mg 07/28/17 10:00 07/28/17 09:47 Protonix Packets For Oral Suspension - PO 40 mg DAILY NIMA Administration Thiamine HCl 100 mg 07/28/17 10:00 07/28/17 09:47 Vitamin B1 - PO 100 mg DAILY NIMA Administration ABD MRI: -Markedly limited exam and essentially nondiagnostic MRCP images and nondiagnostic exam for the pancreas due to significant motion. -Heterogeneous atrophied pancreas with questionable pancreatic ductal dilatation and questionable 1.6 cm lesion in the pancreatic uncinate process. Further evaluation with CT of the pancreas - pancreatic protocol is recommended. -No biliary ductal dilatation. -Gallbladder sludge with no stones nor MRI evidence of cholecystitis. -Mild splenomegaly. -Right lower and middle lobe infiltrate in addition to left lower lobe nodular densities. Further evaluation with CT of the chest is recommended. ABD U/S: Impression: 1. Hepatic steatosis. 2. No evidence of cholelithiasis, acute cholecystitis or biliary ductal dilatation. Moderate volume of sludge within the gallbladder. Moderate gallbladder distention may be physiologic and/or secondary to dyskinesia. ASSESSMENT/PLAN: 51 yo M with a PMhx ETOH abuse, short term memory loss, suspected underlying Wernicke's encephalopathy comes with ETOH binge drinking for a week and progressive jaundice, found with likely acute alcoholic hepatitis #Alcoholic hepatitis with Hyperbilirubinemia and Pancytopenia -Meld Score 21 -BNI163, ALP 530, T bili 4.9 on Admission -FU Direct/ indirect bilirubin -FU Hep Panel -MRI abdomen ordered -Monitor H&H, continue PPI -GI on board (Dr. Gilbert) -Will start Steroids if Hep panel negative -Monitor LFTs -PT/INR 1.04 -Monitor for withdrawals -IV fluids 75ml/hour -Thiamine 100mg Daily #RLL CAP vs Aspiration PNA from Alcohol -RLL infiltrate on CXR -Cont. Ceftriaxone/Azithromycin (Day 1) -Sputum cultures -Robitussin for cough #Pancreatic Lesion/Ductal dilatation -ABD MRI: Heterogeneous atrophied pancreas with questionable pancreatic ductal dilatation and questionable 1.6 cm lesion in the pancreatic uncinate process. -- Further evaluation with CT of the pancreas -Will discuss with GI #Macrocytic anemia -Cont. Folate and Thiamine #Hyponatremia hypovolemic vs beer potomania -FU blood and urine osmolality. -urine electrolyte. -NS 75ml/hr #Hx of Afib: -Rate control with Metoprolol 25mg #Depression/Anxiety -Cymbalta 60mg daily -Ativan 0.5mg BID #Chronic Encephalopathy - likely Wernicke - thiamine - folic acid DVT PPx -SCDs (thrombocytopenia) Visit type - Emergency Visit Emergency Visit: Yes ED Registration Date: 07/28/17 Care time: The patient presented to the Emergency Department on the above date and was hospitalized for further evaluation of their emergent condition. - New Patient This patient is new to me today: Yes Date on this admission: 07/28/17 - Critical Care Critical Care patient: No
[2017-07-28] MEDS: LORazepam 0.5 MG TABLET PO SCH (23:02)
[2017-07-28] MEDS ORDERED: LORazepam 0.5 MG TABLET PO ONE (23:03)
[2017-07-29 08:23] LABS: HEMATOCRIT 22.9 % (35.4-49); HEMOGLOBIN 7.8 GM/dL (11.7-16.9); MCH 33.6 pg (25.7-33.7); MCHC 34.1 g/dl (32.0-35.9); MEAN CELL VOLUME 98.6 fl (80-96); MEAN PLT VOLUME 8.9 fl (7.5-11.1); PLATELET COUNT 102 K/MM3 (134-434); RBC 2.32 M/mm3 (4.00-5.60); RDW 17.7 % (11.9-15.9); WHITE BLOOD COUNT 4.1 K/mm3 (4.0-10.0)
[2017-07-29 08:27] LABS: INR 1.02 (0.82-1.09); PROTHROMBIN TIME (PATIENT) 11.5 SEC (9.98-11.88)
[2017-07-29 08:57] LABS: CHLORIDE 104 mmol/L (98-107); POTASSIUM 3.2 mmol/L (3.5-5.1); SODIUM 140 mmol/L (136-145)
[2017-07-29 09:04] LABS: ALBUMIN 1.5 g/dl (3.4-5.0); ALK PHOS 328 U/L (45-117); ANION GAP 9 (8-16); BILIRUBIN,TOTAL 2.8 mg/dL (0.2-1.0); BLOOD UREA NITROGEN 5 mg/dL (7-18); CALCIUM 7.1 mg/dL (8.5-10.1); CO2 27 mmol/L (21-32); CREATININE 0.6 mg/dL (0.7-1.3); GLUCOSE,RANDOM 90 mg/dL (74-106); MAGNESIUM 1.9 mg/dL (1.8-2.4); PHOSPHOROUS 2.6 mg/dL (2.5-4.9); SGOT/AST 71 U/L (15-37); SGPT/ALT 47 U/L (12-78); TOT PROT 4.9 g/dl (6.4-8.2)
[2017-07-29] MEDS ORDERED: PrednisoLONE 15 MG/5 ML UNIT-DOSE CUP PO SCH (10:00)
[2017-07-29] MEDS ORDERED: PT OWN MED DRAWER 7, Y5N ONE (10:53)
[2017-07-29] MEDS: LORazepam 0.5 MG TABLET PO SCH (10:54)
[2017-07-29] MEDS: THIAMINE HCL 100 MG TABLET (FP) PO SCH (10:54)
[2017-07-29] MEDS: PANTOPRAZOLE SOD 40 MG SUSPENSION PACKET PO SCH (10:55)
[2017-07-29] MEDS: CEFTRIAXONE 1 G/50 ML PREMIX 50 ML IVPB SCH (10:55)
[2017-07-29] MEDS: SODIUM CHLORIDE 1,000 ML IV SCH ×2 (10:55→12:16)
[2017-07-29] MEDS: FOLIC ACID 1 MG TABLET (FP) PO SCH (10:55)
[2017-07-29] MEDS: METOPROLOL TARTRATE 25 MG TABLET (FP) PO SCH (10:55)
[2017-07-29] MEDS: AZITHROMYCIN IVPB 500 MG in DEXTROSE 5%-WATER - 250 ML IVPB SCH (11:49)
--- NOTE | 2017-07-29 11:57 | PN ---
Teaching Attending Note Name of Resident: Michael Oliva ATTENDING PHYSICIAN STATEMENT Time of evaluation: 9:00 AM SUBJECTIVE: Patient seen and examined, no complaints. Denies any nausea, vomiting, abdominal pain, dyspnea, fevers/chills or urinary symptoms. Positive cough. OBJECTIVE: Vital Signs Period Temp Pulse Resp BP Sys/[place] Pulse Ox Last 24 Hr 97.6 F-98.8 F 71-101 18-20 111-139/68-88 97-97 Intake & Output 07/26/17 07/27/17 07/28/17 07/29/17 23:59 23:59 23:59 23:59 Intake Total 1125 950 Balance 1125 950 Weight 135 lb 135 lb 7 oz 133 lb general; Lying in bed in no acute distress Abdomen: soft, NT, ND, positive bowel sounds, neg bill's sign Chest: no rales or wheezing appreciated, positive air entry, good effort Extremities: no edema, unchanged upper extremity tremors neuro AAOx2, unchanged exam, no asterexis Home Medication List Medication Instructions Recorded Confirmed Type Metoprolol Tartrate [Lopressor -] 25 mg PO DAILY 07/28/17 07/28/17 History Active Medications Generic Name Dose Route Start Last Admin Trade Name Freq PRN Reason Stop Dose Admin Benzocaine/Menthol 1 each 07/28/17 03:50 Cepacol Lozenge - MM PRN PRN SORE THROAT Folic Acid 1 mg 07/28/17 12:00 07/29/17 10:55 Folic Acid - PO 1 mg DAILY NIMA Administration Guaifenesin 10 ml 07/28/17 10:42 Robitussin - PO Q6H PRN COUGH Azithromycin 500 mg/ Dextrose 250 mls @ 250 mls/hr 07/28/17 10:45 07/29/17 11 :49 IVPB 250 mls/hr DAILY NIMA Administration CEFTRIAXONE 1 G/50 ML PREMIX 50 mls @ 100 mls/hr 07/28/17 10:45 07/29/17 10: 55 Ceftriaxone 1 Gm-D5w Bag IVPB 100 mls/hr DAILY NIMA Administration Sodium Chloride 1,000 mls @ 75 mls/hr 07/29/17 11:45 Normal Saline - IV ASDIR NIMA Lorazepam 0.5 mg 07/28/17 22:00 07/29/17 10:54 Ativan - PO 0.5 mg BID NIMA Administration Metoprolol Tartrate 25 mg 07/29/17 10:00 07/29/17 10:55 Lopressor - PO 25 mg DAILY NIMA Administration Pantoprazole Sodium 40 mg 07/28/17 10:00 07/29/17 10:55 Protonix Packets For Oral Suspension - PO 40 mg DAILY NIMA Administration Potassium Chloride 40 meq 07/29/17 12:00 Potassium Chloride Oral Liquid PO 07/29/17 22:01 BID [facility] Thiamine HCl 100 mg 07/28/17 10:00 07/29/17 10:54 Vitamin B1 - PO 100 mg DAILY NIMA Administration Laboratory Results - last 24 hr 07/28/17 07/28/17 07/28/17 10:30 11:06 11:06 WBC RBC Hgb Hct MCV MCH MCHC RDW Plt Count MPV PT with INR INR Sodium 132 L Potassium 3.7 Chloride 101 Carbon Dioxide 26 Anion Gap BUN Creatinine Creat Clearance w eGFR Random Glucose Calcium Phosphorus Magnesium Total Bilirubin Direct Bilirubin AST ALT Alkaline Phosphatase Total Protein Albumin Serum Folate Urine Osmolality 168 L Opiates Screen Negative Methadone Screen Negative Barbiturate Screen Negative Phencyclidine Screen Negative Ur Amphetamines Screen Negative MDMA (Ecstasy) Screen Negative Benzodiazepines Screen Positive Cocaine Screen Negative U Marijuana (THC) Screen Negative Hepatitis A IgM Ab Negative Hep Bs Antigen Negative Hep B Core IgM Ab Negative Hepatitis C Antibody 0.2 07/28/17 07/29/17 07/29/17 11:30 07:00 07:00 WBC RBC Hgb Hct MCV MCH MCHC RDW Plt Count MPV PT with INR 11.50 INR 1.02 Sodium 140 Potassium 3.2 L Chloride 104 Carbon Dioxide 27 Anion Gap 9 BUN 5 L Creatinine 0.6 L Creat Clearance w eGFR > 60 Random Glucose 90 D Calcium 7.1 L Phosphorus 2.6 Magnesium 1.9 Total Bilirubin 2.8 H D Direct Bilirubin AST 71 H D ALT 47 Alkaline Phosphatase 328 H D Total Protein 4.9 L Albumin 1.5 L Serum Folate 15 Urine Osmolality Opiates Screen Methadone Screen Barbiturate Screen Phencyclidine Screen Ur Amphetamines Screen MDMA (Ecstasy) Screen Benzodiazepines Screen Cocaine Screen U Marijuana (THC) Screen Hepatitis A IgM Ab Hep Bs Antigen Hep B Core IgM Ab Hepatitis C Antibody 07/29/17 07/29/17 07/29/17 07:00 07:00 07:00 WBC 4.1 RBC 2.32 L Hgb 7.8 L Hct 22.9 L MCV 98.6 H MCH 33.6 MCHC 34.1 RDW 17.7 H Plt Count 102 L D MPV 8.9 PT with INR 11.50 INR 1.02 Sodium Potassium Chloride Carbon Dioxide Anion Gap BUN Creatinine Creat Clearance w eGFR Random Glucose Calcium Phosphorus Magnesium Total Bilirubin Direct Bilirubin 2.4 H D AST ALT Alkaline Phosphatase Total Protein Albumin Serum Folate Urine Osmolality Opiates Screen Methadone Screen Barbiturate Screen Phencyclidine Screen Ur Amphetamines Screen MDMA (Ecstasy) Screen Benzodiazepines Screen Cocaine Screen U Marijuana (THC) Screen Hepatitis A IgM Ab Hep Bs Antigen Hep B Core IgM Ab Hepatitis C Antibody Microbiology 07/29/17 06:49 Nasopharyngeal Swab Influenza Types A,B Antigen (RAH) - Final 07/29/17 06:49 Nasopharyngeal Swab - Final 07/28/17 00:20 Blood - Peripheral Venous Blood Culture - Preliminary NO GROWTH OBTAINED AFTER 24 HOURS, INCUBATION TO CONTINUE FOR 4 DAYS. 07/28/17 00:20 Blood - Peripheral Venous Blood Culture - Preliminary NO GROWTH OBTAINED AFTER 24 HOURS, INCUBATION TO CONTINUE FOR 4 DAYS. MRCP results reviewed ASSESSMENT AND PLAN: 51 yom with ETOH abuse, short term memory loss, suspected underlying Wernicke's encephalopathy comes with ETOH binge a week ago, progressive jaundice and found with likely acute alcoholic hepatitis -Likely acute alcoholic hepatitis with hyperbilirubinemia/thrombocytopenia -Suspected underlying Wernicke's encephalopathy -Hyponatremia, hypovolumic vs beer potomania -Multifocal PNA, ?aspiration in the setting of ETOH abuse. -h/o Atrial fibrillation not on AC -Macrocytic anemia -Depression -Chronic back pain Plan: Clinically doing well, DF < 3 and MELD 10, no indication for steroids currently. hep panel neg. worsening anemia, ?hemodilution, no gross evidence of bleed, repeat h/h later today, check FOBT, discuss with GI. Continue PPI. MRCP noted, discussed with Dr. Stephens, MRCP ideal study to address pancreatic lesion/biliary system. If unable to repeat with sedation, recommend CT with contrast though low yield. Will place CT a/P, also add Chest CT given multiple infiltrates and ?nodule. Continue gentle hydration for now. WBc, platelets improved. Ceftriaxone/azithromycin day 2. Continue for now. Flu swab neg. Continue metoprolol. Confirm home meds. No s/s of active withdrawal currently, monitor for now. DVTPPX with SCDs given thrombocytopenia. Continue folate/thiamine. Dispo pending improvement in symptoms. Arpita Ram HCP, paperwork in the chart.
[2017-07-29] MEDS: POTASSIUM CHLORIDE ORAL LIQUID 20 MEQ/15 ML PO SCH ×2 (12:16→21:19)
--- NOTE | 2017-07-29 13:33 | PN ---
Progress Note, Physician History of Present Illness: No events. Clinically appears the same. Not in distress. MRCP results noted. CT was ordered. - Current Medication List Current Medications: Active Medications Benzocaine/Menthol (Cepacol Lozenge -) 1 each MM PRN PRN PRN Reason: SORE THROAT Folic Acid (Folic Acid -) 1 mg PO DAILY [facility] Last Admin: 07/29/17 10:55 Dose: 1 mg Guaifenesin (Robitussin -) 10 ml PO Q6H PRN PRN Reason: COUGH Azithromycin 500 mg/ Dextrose 250 mls @ 250 mls/hr IVPB DAILY [facility] Last Admin: 07/29/17 11:49 Dose: 250 mls/hr CEFTRIAXONE 1 G/50 ML PREMIX (Ceftriaxone 1 Gm-D5w Bag) 50 mls @ 100 mls/hr IVPB DAILY [facility] Last Admin: 07/29/17 10:55 Dose: 100 mls/hr Sodium Chloride (Normal Saline -) 1,000 mls @ 75 mls/hr IV ASDIR [facility] Last Admin: 07/29/17 12:16 Dose: 75 mls/hr Lorazepam (Ativan -) 0.5 mg PO BID [facility] Last Admin: 07/29/17 10:54 Dose: 0.5 mg Metoprolol Tartrate (Lopressor -) 25 mg PO DAILY [facility] Last Admin: 07/29/17 10:55 Dose: 25 mg Pantoprazole Sodium (Protonix Packets For Oral Suspension -) 40 mg PO DAILY [facility] Last Admin: 07/29/17 10:55 Dose: 40 mg Potassium Chloride (Potassium Chloride Oral Liquid) 40 meq PO BID [facility] Stop: 07/29/17 22:01 Last Admin: 07/29/17 12:16 Dose: 40 meq Thiamine HCl (Vitamin B1 -) 100 mg PO DAILY [facility] Last Admin: 07/29/17 10:54 Dose: 100 mg - Objective Vital Signs: Vital Signs Temperature 98.8 F 07/29/17 09:03 Pulse Rate 101 H 07/29/17 09:03 Respiratory Rate 20 07/29/17 09:03 Blood Pressure 139/88 07/29/17 09:03 O2 Sat by Pulse Oximetry (%) 97 07/29/17 09:00 Constitutional: Yes: No Distress, Calm Gastrointestinal: Yes: Soft. No: Rectal Bleeding, Tenderness, Vomiting Neurological: Yes: Asterixis, Tremors Labs: CBC, BMP 07/29/17 07:00 07/29/17 07:00 INR, PTT INR 1.02 (0.82-1.09) 07/29/17 07:00 Abnormal Lab Results 07/29/17 07/29/17 07/29/17 07:00 07:00 07:00 RBC 2.32 L Hgb 7.8 L Hct 22.9 L MCV 98.6 H RDW 17.7 H Plt Count 102 L D Potassium 3.2 L BUN 5 L Creatinine 0.6 L Calcium 7.1 L Total Bilirubin 2.8 H D Direct Bilirubin 2.4 H D AST 71 H D Alkaline Phosphatase 328 H D Total Protein 4.9 L Albumin 1.5 L Problem List - Problems (1) Wernicke encephalopathy Code(s): E51.2 - WERNICKE'S ENCEPHALOPATHY (2) Alcoholic hepatitis Code(s): K70.10 - ALCOHOLIC HEPATITIS WITHOUT ASCITES (3) Alcohol use disorder Code(s): F10.99 - ALCOHOL USE, UNSP WITH UNSPECIFIED ALCOHOL-INDUCED DISORDER (4) Jaundice Code(s): R17 - UNSPECIFIED JAUNDICE (5) Malnourished Code(s): E46 - UNSPECIFIED PROTEIN-CALORIE MALNUTRITION Assessment/Plan A 51 yom with chronic, ongoing alcohol abuse x 30 years and short term memory loss. Admitted with acute jaundice and grade I-II encephalopathy ?chronicity. Mixed cholestasis with hepatitis. Normal pt, cr. Macrocytic, normoachromic anemia and low plt count. May be related to ETOH-bone marrow suppression and/or liver cirrhosis. His SO, although very protective and involved, may be unintentionally enabling the patient to continue his alcohol habbit (downplays daily beer use, has "account" at a local bar). Counseling. Pt and SO Withdrawal protocol CT with pancreatic protocol Agree with steroids for possible acute alcoholic hepatitis Viral hepatitis panel EGD to survey for esophagogastric varices early next week.
[2017-07-29 15:26] LABS: HEMATOCRIT 23.6 % (35.4-49); HEMOGLOBIN 7.9 GM/dL (11.7-16.9); MCH 33.3 pg (25.7-33.7); MCHC 33.6 g/dl (32.0-35.9); MEAN CELL VOLUME 98.9 fl (80-96); MEAN PLT VOLUME 8.7 fl (7.5-11.1); PLATELET COUNT 114 K/MM3 (134-434); RBC 2.39 M/mm3 (4.00-5.60); RDW 17.6 % (11.9-15.9); WHITE BLOOD COUNT 5.2 K/mm3 (4.0-10.0)
[2017-07-29] MEDS ORDERED: LIDOCAINE 5% TOPICAL PATCH TP ONE (20:20)
[2017-07-29] MEDS: ALPRAZolam 2 MG TABLET PO SCH (21:20)
[2017-07-30] MEDS: LIDOCAINE PATCH REMOVAL MC SCH ×2 (00:13→21:22)
[2017-07-30 07:53] LABS: CHLORIDE 101 mmol/L (98-107); POTASSIUM 3.6 mmol/L (3.5-5.1); SODIUM 138 mmol/L (136-145)
[2017-07-30 08:07] LABS: BASO % 0.3 % (0-2.0); EOS % 0.3 % (0-4.5); HEMATOCRIT 21.8 % (35.4-49); HEMOGLOBIN 7.3 GM/dL (11.7-16.9); INR 1.06 (0.82-1.09); LYMPH % 20.8 % (8-40); MCH 33.2 pg (25.7-33.7); MCHC 33.5 g/dl (32.0-35.9); MEAN CELL VOLUME 98.9 fl (80-96); MEAN PLT VOLUME 8.4 fl (7.5-11.1); MONO % 10.1 % (3.8-10.2); NEUT % 68.5 % (42.8-82.8); PLATELET COUNT 118 K/MM3 (134-434); RDW 17.5 % (11.9-15.9); WHITE BLOOD COUNT 4.5 K/mm3 (4.0-10.0)
[2017-07-30 08:25] LABS: ALBUMIN 1.6 g/dl (3.4-5.0); ALK PHOS 299 U/L (45-117); ANION GAP 9 (8-16); BILIRUBIN,DIRECT 1.9 mg/dL (0.0-0.2); BILIRUBIN,TOTAL 2.3 mg/dL (0.2-1.0); BLOOD UREA NITROGEN 3 mg/dL (7-18); CALCIUM 7.6 mg/dL (8.5-10.1); CO2 28 mmol/L (21-32); CREATININE 0.6 mg/dL (0.7-1.3); GLUCOSE,RANDOM 103 mg/dL (74-106); SGOT/AST 56 U/L (15-37); SGPT/ALT 43 U/L (12-78)
[2017-07-30] MEDS: AZITHROMYCIN IVPB 500 MG in DEXTROSE 5%-WATER - 250 ML IVPB SCH (10:12)
[2017-07-30] MEDS: CEFTRIAXONE 1 G/50 ML PREMIX 50 ML IVPB SCH (10:12)
[2017-07-30] MEDS: PANTOPRAZOLE SOD 40 MG SUSPENSION PACKET PO SCH (10:14)
[2017-07-30] MEDS: THIAMINE HCL 100 MG TABLET (FP) PO SCH (10:14)
[2017-07-30] MEDS: METOPROLOL TARTRATE 25 MG TABLET (FP) PO SCH (10:14)
[2017-07-30] MEDS: FOLIC ACID 1 MG TABLET (FP) PO SCH (10:14)
--- NOTE | 2017-07-30 13:24 | PN ---
Teaching Attending Note Name of Resident: Michael Oliva ATTENDING PHYSICIAN STATEMENT SUBJECTIVE: Patient seen and examined. no nausea, vomiting, abdominal pain or dsypnea. Positive cough. Feels is in the hospital given his back pain which is chronic ( has been confirmed with his HCP) OBJECTIVE: Vital Signs Period Temp Pulse Resp BP Sys/Hutson Pulse Ox Last 24 Hr 97.7 F-98.9 F 70-85 18-20 117-126/68-75 98-98 Intake & Output 07/27/17 07/28/17 07/29/17 07/30/17 23:59 23:59 23:59 23:59 Intake Total 1125 2350 150 Balance 1125 2350 150 Weight 135 lb 135 lb 7 oz 133 lb 129 lb general: sitting in bed in no acute distress CVS:S1S2 regular Chest: fine rales right middle and lower lungs, and Left lower lung, positive air entry bilaterally abdomen: soft, NT, ND, positive bowel sounds extremities: no edema Home Medication List Medication Instructions Recorded Confirmed Type Metoprolol Tartrate [Lopressor -] 25 mg PO DAILY 07/28/17 07/28/17 History Active Medications Generic Name Dose Route Start Last Admin Trade Name Freq PRN Reason Stop Dose Admin Alprazolam 2 mg 07/29/17 22:00 07/29/17 21:20 Xanax - PO 2 mg HS NIMA Administration Benzocaine/Menthol 1 each 07/28/17 03:50 Cepacol Lozenge - MM PRN PRN SORE THROAT Folic Acid 1 mg 07/28/17 12:00 07/30/17 10:14 Folic Acid - PO 1 mg DAILY NIMA Administration Guaifenesin 10 ml 07/28/17 10:42 Robitussin - PO Q6H PRN COUGH Azithromycin 500 mg/ Dextrose 250 mls @ 250 mls/hr 07/28/17 10:45 07/30/17 10 :12 IVPB 250 mls/hr DAILY NIMA Administration CEFTRIAXONE 1 G/50 ML PREMIX 50 mls @ 100 mls/hr 07/28/17 10:45 07/30/17 10: 12 Ceftriaxone 1 Gm-D5w Bag IVPB 100 mls/hr DAILY NIMA Administration Sodium Chloride 1,000 mls @ 75 mls/hr 07/29/17 11:45 07/29/17 12:16 Normal Saline - IV 75 mls/hr ASDIR NIMA Administration Metoprolol Tartrate 25 mg 07/29/17 10:00 07/30/17 10:14 Lopressor - PO 25 mg DAILY NIMA Administration Miscellaneous 1 each 07/29/17 22:00 07/30/17 00:13 Lidoderm Patch Removal MC 1 each DAILY@2200 NIMA Administration Pantoprazole Sodium 40 mg 07/28/17 10:00 07/30/17 10:14 Protonix Packets For Oral Suspension - PO 40 mg DAILY NIMA Administration Thiamine HCl 100 mg 07/28/17 10:00 07/30/17 10:14 Vitamin B1 - PO 100 mg DAILY NIMA Administration Laboratory Results - last 24 hr 07/29/17 07/29/17 07/30/17 07:00 15:00 07:00 WBC 5.2 4.5 RBC 2.39 L 2.20 L Hgb 7.9 L 7.3 L Hct 23.6 L 21.8 L MCV 98.9 H 98.9 H MCH 33.3 33.2 MCHC 33.6 33.5 RDW 17.6 H 17.5 H Plt Count 114 L 118 L MPV 8.7 8.4 Neutrophils % 68.5 Lymphocytes % 20.8 D Monocytes % 10.1 Eosinophils % 0.3 D Basophils % 0.3 PT with INR INR Sodium Potassium Chloride Carbon Dioxide Anion Gap BUN Creatinine Random Glucose Calcium Total Bilirubin Direct Bilirubin AST ALT Alkaline Phosphatase Total Protein Albumin Tumor Marker AFP 1.6 07/30/17 07/30/17 07:00 07:00 WBC RBC Hgb Hct MCV MCH MCHC RDW Plt Count MPV Neutrophils % Lymphocytes % Monocytes % Eosinophils % Basophils % PT with INR 12.00 H INR 1.06 Sodium 138 Potassium 3.6 Chloride 101 Carbon Dioxide 28 Anion Gap 9 BUN 3 L D Creatinine 0.6 L Random Glucose 103 Calcium 7.6 L Total Bilirubin 2.3 H Direct Bilirubin 1.9 H D AST 56 H D ALT 43 Alkaline Phosphatase 299 H Total Protein 5.0 L Albumin 1.6 L Tumor Marker AFP Microbiology 07/28/17 00:20 Blood - Peripheral Venous Blood Culture - Preliminary NO GROWTH OBTAINED AFTER 48 HOURS, INCUBATION TO CONTINUE FOR 3 DAYS. 07/28/17 00:20 Blood - Peripheral Venous Blood Culture - Preliminary NO GROWTH OBTAINED AFTER 48 HOURS, INCUBATION TO CONTINUE FOR 3 DAYS. 07/29/17 06:49 Nasopharyngeal Swab Influenza Types A,B Antigen (RAH) - Final 07/29/17 06:49 Nasopharyngeal Swab - Final CT chest/A/P results pending ASSESSMENT AND PLAN: 51 yom with ETOH abuse, short term memory loss, suspected underlying Wernicke's encephalopathy comes with ETOH binge a week ago, progressive jaundice and found with likely acute alcoholic hepatitis -Likely acute alcoholic hepatitis with hyperbilirubinemia/thrombocytopenia -Suspected underlying Wernicke's encephalopathy -Hyponatremia, hypovolumic vs beer potomania -Multifocal PNA, ?aspiration in the setting of ETOH abuse. -h/o Atrial fibrillation not on AC -Macrocytic anemia -Depression -Chronic back pain Plan: Clinically doing well, liver function continues to improve, DF < 3 and MELD improved. no indication for steroids currently. hep panel neg. worsening anemia, ?hemodilution, no gross evidence of bleed, repeat h/h later today, Follow up FOBT, discussed with GI, EGD in AM, NPO after midnight. Continue PPI. MRCP noted, discussed with Dr. Stephens, MRCP ideal study to address pancreatic lesion/biliary system. If unable to repeat with sedation, recommend CT with contrast though low yield. CT chest/A/p done, follow up read. Continue gentle hydration for now. WBc, platelets improved. Ceftriaxone/azithromycin day 3. Continue for now. Flu swab neg. Continue metoprolol. Confirm home meds. No s/s of active withdrawal currently, monitor for now. DVTPPX with SCDs given thrombocytopenia. Continue folate/thiamine. Dispo pending improvement in symptoms. Arpita Ram HCP, paperwork in the chart.
[2017-07-30] MEDS: SODIUM CHLORIDE 1,000 ML IV SCH (21:21)
[2017-07-30] MEDS: ALPRAZolam 2 MG TABLET PO SCH (21:22)
[2017-07-30] MEDS ORDERED: LIDOCAINE PATCH REMOVAL MC SCH (22:00)
[2017-07-30] MEDS ORDERED: LIDOCAINE 5% TOPICAL PATCH TP ONE (23:31)
--- NOTE | 2017-07-31 08:26 | PN ---
Teaching Attending Note Name of Resident: Naldo Jordan ATTENDING PHYSICIAN STATEMENT Time of evaluation: 10:50 AM I saw and evaluated the patient. I reviewed the resident's note and discussed the case with the resident. I agree with the resident's findings and plan as documented. SUBJECTIVE: Patient seen and examined. no complaints currently, walking back from bathroom. OBJECTIVE: Vital Signs Period Temp Pulse Resp BP Sys/Hutson Pulse Ox Last 24 Hr 97.9 F-99.0 F 64-83 16-20 117-141/67-87 97-98 Intake & Output 07/28/17 07/29/17 07/30/17 07/31/17 23:59 23:59 23:59 23:59 Intake Total 1125 2350 1150 900 Balance 1125 2350 1150 900 Weight 135 lb 7 oz 133 lb 129 lb 128 lb 11.2 oz General: ambulating in room mildly tremulous, no acute distress Chest: fine bibasilar and right middle rales Abdomen: soft, NT, ND, positive bowel sounds, neg Broussard's sign Extremities: no edema Neuro: AA, oriented to self, place, also month, thought was 2017 but redirectable, no asterexis, grossly nonfocal, mild tremors chronic Home Medication List Medication Instructions Recorded Confirmed Type Metoprolol Tartrate [Lopressor -] 25 mg PO DAILY 07/28/17 07/28/17 History Active Medications Generic Name Dose Route Start Last Admin Trade Name Freq PRN Reason Stop Dose Admin Alprazolam 2 mg 07/29/17 22:00 07/30/17 21:22 Xanax - PO 2 mg HS NIMA Administration Benzocaine/Menthol 1 each 07/28/17 03:50 Cepacol Lozenge - MM PRN PRN SORE THROAT Folic Acid 1 mg 07/28/17 12:00 07/30/17 10:14 Folic Acid - PO 1 mg DAILY NIMA Administration Guaifenesin 10 ml 07/28/17 10:42 Robitussin - PO Q6H PRN COUGH Azithromycin 500 mg/ Dextrose 250 mls @ 250 mls/hr 07/28/17 10:45 07/30/17 10 :12 IVPB 250 mls/hr DAILY NIMA Administration CEFTRIAXONE 1 G/50 ML PREMIX 50 mls @ 100 mls/hr 07/28/17 10:45 07/30/17 10: 12 Ceftriaxone 1 Gm-D5w Bag IVPB 100 mls/hr DAILY NIMA Administration Sodium Chloride 1,000 mls @ 75 mls/hr 07/29/17 11:45 07/30/17 21:21 Normal Saline - IV 75 mls/hr ASDIR NIMA Administration Metoprolol Tartrate 25 mg 07/29/17 10:00 07/30/17 10:14 Lopressor - PO 25 mg DAILY NIMA Administration Miscellaneous 1 each 07/29/17 22:00 07/30/17 00:13 Lidoderm Patch Removal MC 1 each DAILY@2200 NIMA Administration Miscellaneous 1 each 07/30/17 22:00 Lidoderm Patch Removal MC DAILY@2200 NIMA Pantoprazole Sodium 40 mg 07/28/17 10:00 07/30/17 10:14 Protonix Packets For Oral Suspension - PO 40 mg DAILY NIMA Administration Thiamine HCl 100 mg 07/28/17 10:00 07/30/17 10:14 Vitamin B1 - PO 100 mg DAILY NIMA Administration Laboratory Results - last 24 hr 07/28/17 07/30/17 07/31/17 01:07 17:00 08:46 WBC 4.9 RBC 3.01 L D Hgb 9.5 L D Hct 28.5 L D MCV 94.9 MCH 31.7 MCHC 33.4 RDW 21.3 H D Plt Count 148 D MPV 7.8 Sodium Potassium Chloride Carbon Dioxide Anion Gap BUN Creatinine Creat Clearance w eGFR Random Glucose Calcium Total Bilirubin AST ALT Alkaline Phosphatase Total Protein Albumin Blood Type O POSITIVE O POSITIVE Antibody Screen Negative Negative Crossmatch See Detail 07/31/17 08:46 WBC RBC Hgb Hct MCV MCH MCHC RDW Plt Count MPV Sodium 138 Potassium 3.4 L Chloride 101 Carbon Dioxide 28 Anion Gap 9 BUN 6 L D Creatinine 0.7 Creat Clearance w eGFR > 60 Random Glucose 131 H D Calcium 7.6 L Total Bilirubin 2.5 H AST 52 H ALT 41 Alkaline Phosphatase 298 H Total Protein 5.6 L Albumin 1.8 L Blood Type Antibody Screen Crossmatch Microbiology 07/28/17 00:20 Blood - Peripheral Venous Blood Culture - Preliminary NO GROWTH OBTAINED AFTER 72 HOURS, INCUBATION TO CONTINUE FOR 2 DAYS. 07/28/17 00:20 Blood - Peripheral Venous Blood Culture - Preliminary NO GROWTH OBTAINED AFTER 72 HOURS, INCUBATION TO CONTINUE FOR 2 DAYS. 07/29/17 06:49 Nasopharyngeal Swab Influenza Types A,B Antigen (RAH) - Final 07/29/17 06:49 Nasopharyngeal Swab - Final ASSESSMENT AND PLAN: 51 yom with ETOH abuse, short term memory loss, suspected underlying Wernicke's encephalopathy comes with ETOH binge a week ago, progressive jaundice and found with likely acute alcoholic hepatitis -Likely acute alcoholic hepatitis with hyperbilirubinemia/thrombocytopenia, r/o obstructive process -Suspected underlying Wernicke's encephalopathy -Hyponatremia, hypovolumic vs beer potomania -Multifocal PNA, ?aspiration in the setting of ETOH abuse. -h/o Atrial fibrillation not on AC -Macrocytic anemia -Depression -Chronic back pain Plan: Clinically doing well, liver function continues to improve, DF < 3 and MELD improved. no indication for steroids currently. hep panel neg. worsening anemia, s/p 1 Unit PRBC 2/4, appropriate response, EGD noted today, continue PPI. Follow up biopsies. MRCP limited from motion, patient restless and with tremors. CT A/P done with pancreatic protocol still unable to r/o pancreatic head lesion vs focal CBD dilatation. Patient with direct hyperbilirubinemia on admission, need to r/o CBD process though alcohol high on differential. Discussed with Dr. Gilbert, will re-attempt MRCP with sedation, ativan 1 mg IV beforehand. Continue gentle hydration for now. WBc, platelets improved. Ceftriaxone/azithromycin day 5. Doing well clinically. Will need outpatient CT chest and pulmonary follow up to assess nodules in 6-8 weeks. Flu swab neg. Continue metoprolol. Confirm home meds. No s/s of active withdrawal currently, monitor for now. DVTPPX with SCDs given thrombocytopenia. Start heparin in 24 hours if platelets stable. Patient with short term memory impairment, was noted dressed ready to go home over the weekend, also risk of wandering and injury. Will place on 1:1 constant observation for now. Attempted to move closer to desk, but HCP declined over the weekend, risks were explained, will re-attempt and monitor for now. Fall precautions. Continue folate/thiamine. Dispo pending improvement in symptoms. Arpita Ram HCP, paperwork in the chart.
--- NOTE | 2017-07-31 08:36 | PN ---
Physical Exam: SUBJECTIVE: Patient seen and examined by me this AM - Pt with no complaints. No fevers, mild chills overnight. Cough improved. No pain anywhere. No CP, chest tightness, N/V, diarrhea, dysuria, melena, hematuria , hematochezia, new neuro findings. - S/p 1 unit prbcs yesterday. Pain well controlled with lidocaine patch. NPO at midnight. OBJECTIVE: Vital Signs Intake & Output 07/28/17 07/29/17 07/30/17 07/31/17 23:59 23:59 23:59 23:59 Intake Total 1125 2350 1150 900 Balance 1125 2350 1150 900 Weight 61.433 kg 60.328 kg 58.513 kg 58.377 kg Period Temp Pulse Resp BP Sys/Hutson Pulse Ox Last 24 Hr 97.9 F-99.0 F 64-83 16-20 117-141/67-87 97-98 GENERAL: Middle-aged, cachectic man, awake, alert, a&ox2. no acute distress. Trace jaundice noted. HEAD: Normal with no signs of trauma. EYES: Dilated pupils BL, minimally reactive. Extraocular movements intact, sclera anicteric, conjunctiva clear. No ptosis. ENT: Palatal jaundice noted. Ears normal, nares patent, oropharynx clear without exudates, moist mucous membranes. NECK: Trachea midline, full range of motion, supple. LUNGS: Coarse crackles in RLL. Otherwise, clear to auscultation bilaterally, no wheezes, no accessory muscle use. HEART: Regular rate and rhythm, S1, S2 without murmur, rub or gallop. ABDOMEN: R periumbilical vertical scar noted. Soft, nontender, nondistended, normoactive bowel sounds, no guarding, no rebound, no hepatosplenomegaly, no masses. EXTREMITIES: BL fine hand tremors, worse with volitional movement. BL hypopigmentation in forearms on extensor surfaces. 2+ pulses, warm, well- perfused, no edema. NEUROLOGICAL: Cranial nerves II through XII grossly intact. Normal speech, gait not observed. PSYCH: Pleasant, interactive with interviewer, Normal mood, normal affect. SKIN: Warm, dry, normal turgor, no rashes or lesions noted Laboratory Results - last 24 hr CBC, BMP 07/31/17 08:46 07/31/17 08:46 02/04/18 07:00 07/30/17 07:00 07/28/17 07/29/17 07/30/17 01:07 07:00 07:00 WBC 4.5 RBC 2.20 L Hgb 7.3 L Hct 21.8 L MCV 98.9 H MCH 33.2 MCHC 33.5 RDW 17.5 H Plt Count 118 L MPV 8.4 Neutrophils % 68.5 Lymphocytes % 20.8 D Monocytes % 10.1 Eosinophils % 0.3 D Basophils % 0.3 Sodium Potassium Chloride Carbon Dioxide Anion Gap BUN Creatinine Random Glucose Calcium Total Bilirubin Direct Bilirubin AST ALT Alkaline Phosphatase Total Protein Albumin Tumor Marker AFP 1.6 Blood Type O POSITIVE Antibody Screen Negative Crossmatch See Detail 07/30/17 07/30/17 07:00 17:00 WBC RBC Hgb Hct MCV MCH MCHC RDW Plt Count MPV Neutrophils % Lymphocytes % Monocytes % Eosinophils % Basophils % Sodium 138 Potassium 3.6 Chloride 101 Carbon Dioxide 28 Anion Gap 9 BUN 3 L D Creatinine 0.6 L Random Glucose 103 Calcium 7.6 L Total Bilirubin 2.3 H Direct Bilirubin 1.9 H D AST 56 H D ALT 43 Alkaline Phosphatase 299 H Total Protein 5.0 L Albumin 1.6 L Tumor Marker AFP Blood Type O POSITIVE Antibody Screen Negative Crossmatch Active Medications Generic Name Dose Route Start Last Admin Trade Name Freq PRN Reason Stop Dose Admin Alprazolam 2 mg 07/29/17 22:00 07/30/17 21:22 Xanax - PO 2 mg HS NIMA Administration Benzocaine/Menthol 1 each 07/28/17 03:50 Cepacol Lozenge - MM PRN PRN SORE THROAT Folic Acid 1 mg 07/28/17 12:00 07/30/17 10:14 Folic Acid - PO 1 mg DAILY NIMA Administration Guaifenesin 10 ml 07/28/17 10:42 Robitussin - PO Q6H PRN COUGH Azithromycin 500 mg/ Dextrose 250 mls @ 250 mls/hr 07/28/17 10:45 07/30/17 10 :12 IVPB 250 mls/hr DAILY NIMA Administration CEFTRIAXONE 1 G/50 ML PREMIX 50 mls @ 100 mls/hr 07/28/17 10:45 07/30/17 10: 12 Ceftriaxone 1 Gm-D5w Bag IVPB 100 mls/hr DAILY NIMA Administration Sodium Chloride 1,000 mls @ 75 mls/hr 07/29/17 11:45 07/30/17 21:21 Normal Saline - IV 75 mls/hr ASDIR NIMA Administration Metoprolol Tartrate 25 mg 07/29/17 10:00 07/30/17 10:14 Lopressor - PO 25 mg DAILY NIMA Administration Miscellaneous 1 each 07/29/17 22:00 07/30/17 00:13 Lidoderm Patch Removal MC 1 each DAILY@2200 NIMA Administration Miscellaneous 1 each 07/30/17 22:00 Lidoderm Patch Removal MC DAILY@2200 NIMA Pantoprazole Sodium 40 mg 07/28/17 10:00 07/30/17 10:14 Protonix Packets For Oral Suspension - PO 40 mg DAILY NIMA Administration Thiamine HCl 100 mg 07/28/17 10:00 07/30/17 10:14 Vitamin B1 - PO 100 mg DAILY NIMA Administration Chest/Ab/pelvis CT 07/29 - Impression: Interstitial and nodular opacities in lower lobes, right more the left, right middle lobe and to a less extent in the right upper lobe, posterior segment likely representing pneumonic infiltrates. There is also consolidation/airspace disease in the right lower lobe, posteriorly consistent with pneumonia. Multiple subcentimeter and borderline mediastinal lymph nodes which are nonspecific. Atrophic calcified pancreas consistent with chronic pancreatitis. 8.5 mm focal low-attenuation density in the pancreatic head. It is unclear whether this represents a low-attenuation pancreatic head lesion or focal dilatation of the common bile duct. Further evaluation with contrast-enhanced MRI of the abdomen and MRCP is needed. Splenomegaly There is no evidence of small bowel obstruction. Watery stools with air-fluid levels in the colon compatible with diarrhea and ileus and without gross wall thickening. Small amount of free fluid in the pelvis and to a lesser extent in the the paracolic gutters ABD MRI / : -Markedly limited exam and essentially nondiagnostic MRCP images and nondiagnostic exam for the pancreas due to significant motion. -Heterogeneous atrophied pancreas with questionable pancreatic ductal dilatation and questionable 1.6 cm lesion in the pancreatic uncinate process. Further evaluation with CT of the pancreas - pancreatic protocol is recommended. -No biliary ductal dilatation. -Gallbladder sludge with no stones nor MRI evidence of cholecystitis. -Mild splenomegaly. -Right lower and middle lobe infiltrate in addition to left lower lobe nodular densities. Further evaluation with CT of the chest is recommended. ABD U/S 07/27: Impression: 1. Hepatic steatosis. 2. No evidence of cholelithiasis, acute cholecystitis or biliary ductal dilatation. Moderate volume of sludge within the gallbladder. Moderate gallbladder distention may be physiologic and/or secondary to dyskinesia. Head CT - No acute bleed, mass effects or lesions noted. ASSESSMENT/PLAN: 51 yo M with chronic alcohol abuse x 30 years and short term memory loss, admitted with jaundice and grade 2 encephalopathy. #Alcoholic hepatitis with Hyperbilirubinemia and Pancytopenia - liver function improving, LFTs downtrending -LFTs improving -D bili downtrending -Hepatitis panel negative -MRI abdomen w/ sedation tonight per Dr. Gilbert recs -Trend H/H - Cont PPI -GI consulted, Dr. Gilbert aware -Trend LFTs -Monitor for signs of withdrawal; no symptoms currently -IVFs -Thiamine 100mg Daily - Daily coags - S/p EGD 07/31-> Small hiatal hernia, possible gautam's esophagus, portal hypertensive gastropathy and no gastric or esophageal varices noted - No indication for steroids at this time #Retrograde amnesia - fall risk; bed alarm - 1:1 observation - attempted to move pt closer to nursing station, however HCP declined over weeked. #RLL CAP vs Aspiration PNA from Alcohol -RLL infiltrate on CXR -Cont. Ceftriaxone/Azithromycin Day 4 -Sputum cultures -Robitussin for cough -flu negative - Suspicious pulmonary nodules note on CT chest; outpt f/u in 2 months #Pancreatic Lesion/Ductal dilatation -ABD MRI: Heterogeneous atrophied pancreas with questionable pancreatic ductal dilatation and questionable 1.6 cm lesion in the pancreatic uncinate process. - Abdominal MRCP w/ sedation this PM - f/u results with GI #Macrocytic anemia - s/p 1 unit prbcs; repeat Hgb 7.3 -> 9.5 -Cont. Folate and Thiamine -Trend H/H #Hyponatremia - resolved - Daily BMPs, trend #Afib: -continue rate control with Metoprolol 25mg #Depression/Anxiety -Cymbalta 60mg daily -Ativan 0.5mg BID #Chronic Encephalopathy - likely Wernicke - thiamine - folic acid DVT PPx -SCDs FEN PO fluids, LR 100cc/hr Daily BMPs Regular diet Plan discussed with attending, Dr. Hazel Jordan, PGY1 Visit type - Emergency Visit Emergency Visit: Yes ED Registration Date: 07/28/17 Care time: The patient presented to the Emergency Department on the above date and was hospitalized for further evaluation of their emergent condition. - New Patient This patient is new to me today: Yes Date on this admission: 07/31/17 - Critical Care Critical Care patient: No
[2017-07-31 08:52] LABS: HEMATOCRIT 28.5 % (35.4-49); HEMOGLOBIN 9.5 GM/dL (11.7-16.9); MCH 31.7 pg (25.7-33.7); MCHC 33.4 g/dl (32.0-35.9); MEAN CELL VOLUME 94.9 fl (80-96); MEAN PLT VOLUME 7.8 fl (7.5-11.1); PLATELET COUNT 148 K/MM3 (134-434); RBC 3.01 M/mm3 (4.00-5.60); RDW 21.3 % (11.9-15.9); WHITE BLOOD COUNT 4.9 K/mm3 (4.0-10.0)
[2017-07-31 09:28] LABS: ALBUMIN 1.8 g/dl (3.4-5.0); ALK PHOS 298 U/L (45-117); ANION GAP 9 (8-16); BILIRUBIN,TOTAL 2.5 mg/dL (0.2-1.0); BLOOD UREA NITROGEN 6 mg/dL (7-18); CALCIUM 7.6 mg/dL (8.5-10.1); CHLORIDE 101 mmol/L (98-107); CO2 28 mmol/L (21-32); CREATININE 0.7 mg/dL (0.7-1.3); GLUCOSE,RANDOM 131 mg/dL (74-106); POTASSIUM 3.4 mmol/L (3.5-5.1); SGOT/AST 52 U/L (15-37); SGPT/ALT 41 U/L (12-78); SODIUM 138 mmol/L (136-145); TOT PROT 5.6 g/dl (6.4-8.2)
[2017-07-31] MEDS: FOLIC ACID 1 MG TABLET (FP) PO SCH ×2 (09:40→16:26)
[2017-07-31] MEDS: PANTOPRAZOLE SOD 40 MG SUSPENSION PACKET PO SCH ×2 (09:40→16:26)
[2017-07-31] MEDS: METOPROLOL TARTRATE 25 MG TABLET (FP) PO SCH ×2 (09:40→16:26)
[2017-07-31] MEDS ORDERED: PT OWN MED DRAWER 7, Y5N ONE (09:48)
[2017-07-31] MEDS: CEFTRIAXONE 1 G/50 ML PREMIX 50 ML IVPB SCH (09:51)
[2017-07-31] MEDS: THIAMINE HCL 100 MG TABLET (FP) PO SCH ×2 (09:56→16:25)
[2017-07-31] MEDS ORDERED: LACTATED RINGERS SOLUTION 1000 ML INFUS.BAG IV SCH (11:00)
[2017-07-31] MEDS ORDERED: PROPOFOL 20 ML ONE ×2 (11:52)
[2017-07-31] MEDS: AZITHROMYCIN IVPB 500 MG in DEXTROSE 5%-WATER - 250 ML IVPB SCH ×2 (11:53→13:29)
--- NOTE | 2017-07-31 12:25 | PROC ---
Endoscopy Procedure Endoscopy procedure completed. Please see scanned procedure report. small hiatal hernia, possible Rehman's esophagus (biopsies taken), portal hypertensive gastropathy in the fundus and the body (biopsies taken). Normal proximal small bowel (biopsies taken). No Gastric or esophageal varices noted.
--- NOTE | 2017-07-31 12:27 | PN ---
Progress Note (short form) - Note Progress Note: CT results noted. Reatempt MRCP/MRI with either Ativan, or Valium. Problem List - Problems (1) Wernicke encephalopathy Code(s): E51.2 - WERNICKE'S ENCEPHALOPATHY (2) Alcoholic hepatitis Code(s): K70.10 - ALCOHOLIC HEPATITIS WITHOUT ASCITES (3) Alcohol use disorder Code(s): F10.99 - ALCOHOL USE, UNSP WITH UNSPECIFIED ALCOHOL-INDUCED DISORDER (4) Jaundice Code(s): R17 - UNSPECIFIED JAUNDICE (5) Malnourished Code(s): E46 - UNSPECIFIED PROTEIN-CALORIE MALNUTRITION
[2017-07-31] MEDS ORDERED: LORazepam 2 MG/ML SDV VIAL IVPUSH ONE ×2 (14:45→19:00)
[2017-07-31] MEDS: LACTATED RINGERS SOLUTION 1,000 ML/1,000 ML INFUS.BAG IV SCH (15:47)
[2017-07-31] MEDS: LIDOCAINE 5% TOPICAL PATCH TP SCH (16:44)
[2017-07-31] MEDS ORDERED: ACETAMINOPHEN 325 MG TABLET (FP) PO ONE (18:16)
[2017-07-31] MEDS ORDERED: LORazepam 2 MG/ML SDV VIAL ONE (18:56)
[2017-07-31] MEDS: ALPRAZolam 2 MG TABLET PO SCH (21:24)
[2017-08-01] MEDS: LACTATED RINGERS SOLUTION 1,000 ML/1,000 ML INFUS.BAG IV SCH (03:00)
--- NOTE | 2017-08-01 06:25 | PN ---
Physical Exam: SUBJECTIVE: Patient seen and examined by me this AM - No overnight events. Pt with no complaints. Denies f/c, CP, cough, n/v, abdominal pain, diarrhea, constipation, dysuria, hematuria, rashes. Pt informed about results of EGD, all questions answered. Pt on 1:1 overnight, no wandering noted. OBJECTIVE: Vital Signs Intake & Output 07/29/17 07/30/17 07/31/17 08/01/17 23:59 23:59 23:59 23:59 Intake Total 2350 1150 1900 Output Total 200 Balance 2350 1150 1700 Weight 60.328 kg 58.513 kg 58.377 kg 59.052 kg Period Temp Pulse Resp BP Sys/Hutson Pulse Ox Last 24 Hr 97.7 F-99.0 F 64-110 17-20 112-155/66-93 95-100 GENERAL: Middle-aged, cachectic man, awake, alert, a&ox2. no acute distress. Still with jaundice. HEAD: Normal with no signs of trauma. BL spider angiomas on cheeks. EYES: Dilated pupils BL, minimally reactive. Mild scleral icterus BL. Extraocular movements intact, conjunctiva clear. No ptosis. ENT: Palatal jaundice. Ears normal, nares patent, oropharynx clear without exudates, moist mucous membranes. NECK: Trachea midline, full range of motion, supple. LUNGS: Still with coarse crackles in RLL. Otherwise, clear to auscultation bilaterally, no wheezes, no accessory muscle use. HEART: Regular rate and rhythm, S1, S2 without murmur, rub or gallop. ABDOMEN: BL periumbilical vertical scars noted. Soft, nontender, nondistended, normoactive bowel sounds, no guarding, no rebound, no hepatosplenomegaly, no masses. EXTREMITIES: BL fine hand tremors. BL hypopigmentation in forearms on extensor surfaces. 2+ pulses, warm, well-perfused, no edema. NEUROLOGICAL: Cranial nerves II through XII grossly intact. Normal speech, gait not observed. PSYCH: Pleasant, interactive with interviewer, Normal mood, normal affect. SKIN: Warm, dry, normal turgor, no rashes or lesions noted Laboratory Results - last 24 hr CBC, BMP 08/01/17 07:10 08/01/17 06:50 07/31/17 08:46 02/05/18 08:46 07/31/17 07/31/17 08:46 08:46 WBC 4.9 RBC 3.01 L D Hgb 9.5 L D Hct 28.5 L D MCV 94.9 MCH 31.7 MCHC 33.4 RDW 21.3 H D Plt Count 148 D MPV 7.8 Sodium 138 Potassium 3.4 L Chloride 101 Carbon Dioxide 28 Anion Gap 9 BUN 6 L D Creatinine 0.7 Creat Clearance w eGFR > 60 Random Glucose 131 H D Calcium 7.6 L Total Bilirubin 2.5 H AST 52 H ALT 41 Alkaline Phosphatase 298 H Total Protein 5.6 L Albumin 1.8 L Active Medications Generic Name Dose Route Start Last Admin Trade Name Freq PRN Reason Stop Dose Admin Alprazolam 2 mg 07/29/17 22:00 07/31/17 21:24 Xanax - PO 2 mg HS NIMA Administration Benzocaine/Menthol 1 each 07/28/17 03:50 Cepacol Lozenge - MM PRN PRN SORE THROAT Folic Acid 1 mg 07/28/17 12:00 07/31/17 16:26 Folic Acid - PO 1 mg DAILY NIMA Administration Guaifenesin 10 ml 07/28/17 10:42 Robitussin - PO Q6H PRN COUGH Azithromycin 500 mg/ Dextrose 250 mls @ 250 mls/hr 07/28/17 10:45 07/31/17 13 :29 IVPB 250 mls/hr DAILY NIMA Administration CEFTRIAXONE 1 G/50 ML PREMIX 50 mls @ 100 mls/hr 07/28/17 10:45 07/31/17 09: 51 Ceftriaxone 1 Gm-D5w Bag IVPB 100 mls/hr DAILY NIMA Administration Lactated Ringer's 1,000 ml in 1,000 mls @ 100 mls/hr 07/31/17 11:00 07/31/17 15:47 Lactated Ringers Solution IV 100 mls/hr ASDIR NIMA Administration Lidocaine 1 patch 07/31/17 16:45 07/31/17 16:44 Lidoderm Patch - TP 1 patch DAILY NIMA Administration Metoprolol Tartrate 25 mg 07/29/17 10:00 07/31/17 16:26 Lopressor - PO 25 mg DAILY NIMA Administration Miscellaneous 1 each 07/30/17 22:00 Lidoderm Patch Removal MC DAILY@2200 [facility] Pantoprazole Sodium 40 mg 07/28/17 10:00 07/31/17 16:26 Protonix Packets For Oral Suspension - PO 40 mg DAILY NIMA Administration Thiamine HCl 100 mg 07/28/17 10:00 07/31/17 16:25 Vitamin B1 - PO 100 mg DAILY NIMA Administration Chest/Ab/pelvis CT 07/29 - Impression: Interstitial and nodular opacities in lower lobes, right more the left, right middle lobe and to a less extent in the right upper lobe, posterior segment likely representing pneumonic infiltrates. There is also consolidation/airspace disease in the right lower lobe, posteriorly consistent with pneumonia. Multiple subcentimeter and borderline mediastinal lymph nodes which are nonspecific. Atrophic calcified pancreas consistent with chronic pancreatitis. 8.5 mm focal low-attenuation density in the pancreatic head. It is unclear whether this represents a low-attenuation pancreatic head lesion or focal dilatation of the common bile duct. Further evaluation with contrast-enhanced MRI of the abdomen and MRCP is needed. Splenomegaly There is no evidence of small bowel obstruction. Watery stools with air-fluid levels in the colon compatible with diarrhea and ileus and without gross wall thickening. Small amount of free fluid in the pelvis and to a lesser extent in the the paracolic gutters ABD MRI 07/28 : -Markedly limited exam and essentially nondiagnostic MRCP images and nondiagnostic exam for the pancreas due to significant motion. -Heterogeneous atrophied pancreas with questionable pancreatic ductal dilatation and questionable 1.6 cm lesion in the pancreatic uncinate process. Further evaluation with CT of the pancreas - pancreatic protocol is recommended. -No biliary ductal dilatation. -Gallbladder sludge with no stones nor MRI evidence of cholecystitis. -Mild splenomegaly. -Right lower and middle lobe infiltrate in addition to left lower lobe nodular densities. Further evaluation with CT of the chest is recommended. ABD U/S 07/27: Impression: 1. Hepatic steatosis. 2. No evidence of cholelithiasis, acute cholecystitis or biliary ductal dilatation. Moderate volume of sludge within the gallbladder. Moderate gallbladder distention may be physiologic and/or secondary to dyskinesia. Head CT - No acute bleed, mass effects or lesions noted. ABdominal MRCP 07/31 - IMPRESSION: Chronic calcific pancreatitis. A nonspecific 1.3 cm spherical cystic lesion is seen within the pancreatic uncinate process. A small amount of intraluminal debris is noted. This finding may represent a pseudocyst versus a cystic neoplasm. Unless otherwise clinically indicated correlate with close follow-up MRI/MRCP to document stability/resolution. No dilatation of the pancreaticobiliary ductal tract is seen. The gallbladder wall demonstrates borderline thickness diffusely and somewhat increased contrast enhancement diffusely. These findings could be on the basis of acute/recent cholecystitis. If clinically indicated additional evaluation utilizing a radionuclide HIDA scan may be performed. Evaluation for possible choledocholithiasis is limited on this exam due to respiratory motion artifact. Mild splenomegaly. Probable diffuse hepatic steatosis identified on recently performed sonography is difficult to appreciate on the current MRI study. Sonography is somewhat more sensitive in this regard. The partially imaged lower chest demonstrates right basilar and less prominent left basilar opacity suggestive of infiltrates as described on recently performed CT suggestive of infiltrates. Trace bilateral pleural effusions. Head CT 08/01 - Impression: No significant interval change from 07/27/[address] No acute intracranial hemorrhage, mass effects or hydrocephalus. ASSESSMENT/PLAN: 51 yo M with chronic alcohol abuse x 30 years and short term memory loss, admitted with jaundice and grade 2 encephalopathy. #Alcoholic hepatitis w/ Hyperbilirubinemia and Pancytopenia - LFTs completely; T -bili normalized 2.5 -> 0.4 today -LFTs normalized, T bili -Hepatitis panel negative -MRI abdomen 07/31 notable for no pancreaticoductal dilatation; presence of choledolithiasis equivocal; 1.3 cm cystic lesion in uncinate process pseudocyst vs. malignancy -Trend H/H - Cont PPI -GI consulted, Dr. Gilbert aware -Continue to trend LFTs -Monitor for signs of withdrawal; no symptoms currently -IVFs -Thiamine 100mg Daily - Daily coags - S/p EGD 07/31-> Small hiatal hernia, possible gautam's esophagus, portal hypertensive gastropathy and no gastric or esophageal varices noted - Will go for EUS at [facility] with Dr. Arellano #RLL CAP vs Aspiration PNA from Alcohol - WBC 3.8 today; no fevers overnight -RLL infiltrate on CXR -Rocephin d/c'ed due to risk of cholestasis; Day 5 azithromax; started on levaquin tomorrow and / -Robitussin for cough -flu negative - Suspicious pulmonary nodules note on CT chest; outpt f/u in 2 months - Trend WBC, fever curve #Pancreatic Lesion/Ductal dilatation -ABD MRI 07/31 notable for 1.3 cm cystic lesion (pseudocyst vs. malignancy); no ductal dilatation noted. - Abdominal MRCP 07/31 results as above - f/u results with GI at outpt - Alk phos 75, normalized today; T bili 0.4 #Gautam's esophagus - 07/31 EGD notable for suspected gautam's; portal gastropathy - close outpt f/u with GI - Outpt PPI #Retrograde amnesia - Continue to orient pt - fall risk; bed alarm - 1:1 observation - attempted to move pt closer to nursing station, however HCP declined over weeked. #BL mydriasis- unknown if chronic; pupils poorly reactive - CT scan head 08/01 negative today - F/u as outpt #Macrocytic anemia - s/p 1 unit prbcs; repeat Hgb 9.3 today -Cont. 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 HCP aware, agreeable, all questions answered Plan discussed with attending, Dr. Jossy Jordan, PGY1 Visit type - Emergency Visit Emergency Visit: Yes ED Registration Date: 07/28/17 Care time: The patient presented to the Emergency Department on the above date and was hospitalized for further evaluation of their emergent condition. - New Patient This patient is new to me today: No - Critical Care Critical Care patient: No
[2017-08-01 07:49] LABS: ALBUMIN 3.8 g/dl (3.4-5.0); ANION GAP 8 (8-16); BLOOD UREA NITROGEN 9 mg/dL (7-18); CALCIUM 8.8 mg/dL (8.5-10.1); CHLORIDE 101 mmol/L (98-107); CO2 29 mmol/L (21-32); CREATININE 0.8 mg/dL (0.7-1.3); GLUCOSE,RANDOM 104 mg/dL (74-106); MAGNESIUM 2.3 mg/dL (1.8-2.4); PHOSPHOROUS 4.6 mg/dL (2.5-4.9); POTASSIUM 4.2 mmol/L (3.5-5.1); SGOT/AST 21 U/L (15-37); SGPT/ALT 58 U/L (12-78); SODIUM 138 mmol/L (136-145)
[2017-08-01 07:50] LABS: ALK PHOS 75 U/L (45-117); BILIRUBIN,TOTAL 0.4 mg/dL (0.2-1.0)
[2017-08-01 08:02] LABS: BASO % 0.6 % (0-2.0); EOS % 0.9 % (0-4.5); HEMATOCRIT 27.6 % (35.4-49); HEMOGLOBIN 9.3 GM/dL (11.7-16.9); LYMPH % 23.2 % (8-40); MCH 32.1 pg (25.7-33.7); MCHC 33.5 g/dl (32.0-35.9); MEAN CELL VOLUME 95.8 fl (80-96); MEAN PLT VOLUME 8.5 fl (7.5-11.1); MONO % 7.7 % (3.8-10.2); NEUT % 67.6 % (42.8-82.8); PLATELET COUNT 146 K/MM3 (134-434); RBC 2.88 M/mm3 (4.00-5.60); RDW 20.9 % (11.9-15.9); WHITE BLOOD COUNT 3.8 K/mm3 (4.0-10.0)
[2017-08-01] MEDS ORDERED: PT OWN MED DRAWER 7, Y5N ONE ×2 (09:06→18:52)
[2017-08-01] MEDS: FOLIC ACID 1 MG TABLET (FP) PO SCH (09:09)
[2017-08-01] MEDS: METOPROLOL TARTRATE 25 MG TABLET (FP) PO SCH (09:09)
[2017-08-01] MEDS: THIAMINE HCL 100 MG TABLET (FP) PO SCH (09:09)
[2017-08-01] MEDS: PANTOPRAZOLE SOD 40 MG SUSPENSION PACKET PO SCH (09:09)
[2017-08-01] MEDS: LIDOCAINE 5% TOPICAL PATCH TP SCH (09:10)
[2017-08-01] MEDS: CEFTRIAXONE 1 G/50 ML PREMIX 50 ML IVPB SCH (09:17)
[2017-08-01] MEDS: AZITHROMYCIN IVPB 500 MG in DEXTROSE 5%-WATER - 250 ML IVPB SCH (09:20)
--- NOTE | 2017-08-01 15:03 | PN ---
Teaching Attending Note Name of Resident: Naldo Jordan ATTENDING PHYSICIAN STATEMENT I saw and evaluated the patient. I reviewed the resident's note and discussed the case with the resident. I agree with the resident's findings and plan as documented. SUBJECTIVE:asymptomatic. denies Cp, SOB, fever, chills, N/V/C/D, abdominal pain OBJECTIVE: Last Vital Signs Temp Pulse Resp BP Pulse Ox 97.7 F 60 18 146/81 98 08/01/17 13:36 08/01/17 10:00 08/01/17 10:00 08/01/17 10:00 08/01/17 09:00 General NAD A&O x2 (self and location) HEENT B/L dilated pupils, sluggish response to light, EOMI, no nystagmus, + icteric frenulum + telegenctasia on the face CV S1 S2 RRR no murmur/rub/gallop Lungs CTA B/L no wheezing/rales/rhonchi Abdomen soft NT/ND +hemangioma Extremiites + resting tremors, no asterixis ASSESSMENT AND PLAN: 51 yo M with ETOH abuse, short term memory loss, suspected underlying Wernicke' s encephalopathy comes with ETOH binge a week ago, progressive jaundice and found with likely acute alcoholic hepatitis 1. Acute hepatitis with hyperbilirubinemia- likely alcoholic however can not r/ o obstructive process- MRCP repeated with sedation showing chronic calcified pancreas with 1.3cm spherical cytsic lesion within the pancreatic ucinate process which can be pseudocyst vs cystic neoplasm, no dilation within the pancreaticobiliary ductal tract. transaminitis and bilirubienmia has resolved. will need outpatient EUS done at [facility] by Dr Arellano. d/c IVF. 2. B/L mydriasis with delated pupil response- unclear if this is new. will repeat CT head. pt is not on anti-cholinergics or similar medication that can attribute to this. will repeat Head CT as not documented on admission 3. Multifocal PNA- saturating well on RA. on Ceftriaxone and Azithromycin day 5. will convert to levaquin to complete 7 day course to prevent cholestatic congestion. 4. Hyponatremia- likely due to hypovolemia vs beer potomania. resolved. 5. Wernickes Encephalopathy- at baseline per girlfriend. on 1:1 observation due to elopement risk and frequent need for re-orientation. cont thiamine/MVI/folate 6. Macrocytic anemia- due to ETOH. s/p 1 unit PRBC this admission. stable. no indication for transfusion. will re-start iron supplements. 7. Depression- on cymbalta 8. Thrombocytopenia- due to ETOH. now resolved. no signs of bleeding. 9. Barretts esophagitis- s/p EGD on 07/31. with portal HTN no varices. on protonix. will need close GI follow up 10. DVT ppx- SCD. would hold pharmacologic with thrombocytopenia 11. dispo planning. PT assessment 12. spoke with HCP, girlfriend, Arpita Chaitanya, . discussed about current plans. all questions answered. aware there is a possible discharge tomorrow. agreeable to [facility] if needed.
--- NOTE | 2017-08-01 15:56 | PATH ---
Surgical Pathology Report Patient Name: LINDSEY GU [facility]. Rec. #: [id number] /Age/Gender: 1965 (Age: 51) / M Account: [id number] Location: [address] [place] [address] Taken: 07/31/2017 Received: 07/31/2017 Reported: 08/01/2017 Physicians: Mathew Silva M.D. Specimen(s) Received A: BX DUODENUM B: BX ANTRUM AND BODY C: BX ESOPHAGUS Clinical History Preoperative diagnosis: Anemia, rule out varices Postoperative diagnoses: Esophagitis, portal hypertensive gastritis Final Diagnosis A. DUODENUM, SECOND PORTION, BIOPSY: DUODENAL MUCOSA WITHOUT SIGNIFICANT PATHOLOGIC FINDINGS. B. STOMACH, ANTRUM AND BODY, BIOPSY: GASTRIC ANTRAL AND BODY MUCOSA WITH MODERATE CHRONIC GASTRITIS. IMMUNOHISTOCHEMICAL STAIN FOR H. PYLORI IS NEGATIVE. C. DISTAL ESOPHAGUS, BIOPSY: SQUAMOCOLUMNAR MUCOSA WITH CHANGES OF MILD TO MODERATE REFLUX ESOPHAGITIS AND INTESTINAL METAPLASIA CONSISTENT WITH URIBE'S ESOPHAGUS ON A CONCORDANT CLINICAL SETTING. NO DYSPLASIA IDENTIFIED. Electronically Signed Charley Ferguson M.D. Gross Description A. Received in formalin, labeled "biopsy second portion of duodenum" are 2 cheema, irregular portions of soft tissue measuring 0.2 and 0.3 cm. in greatest dimension. The specimens are submitted in toto in one cassette. B. Received in formalin, labeled "biopsy antrum and body" are 2 cheema, irregular portions of soft tissue measuring 0.2 and 0.4 cm. in greatest dimension. The specimens are submitted in toto in one cassette. C. Received in formalin, labeled "biopsy distal esophagus" are 2 cheema, irregular portions of soft tissue averaging 0.3 cm. in greatest dimension. The specimens are submitted in toto in one cassette. 07/31/201707/31/2017
[2017-08-01] MEDS: ALPRAZolam 2 MG TABLET PO SCH (21:11)
[2017-08-02 05:47] VITALS: TEMP 97.7
--- NOTE | 2017-08-02 06:32 | PN ---
Physical Exam: SUBJECTIVE: Patient seen and examined by me this AM - No major events overnight. One BM, no melena, hematochezia or diarrhea. Denies f/c, CP, cough, SOB, n/v, ab pain, vision changes, neuro symptoms. Slept through the night, no wandering. Still on -to-. Plan for discharge today, GF sister will picker / packer around noon. OBJECTIVE: Vital Signs Intake & Output 07/30/17 07/31/17 08/01/17 08/02/17 23:59 23:59 23:59 23:59 Intake Total 1150 1900 2150 Output Total 200 Balance 1150 1700 2150 Weight 58.513 kg 58.377 kg 58.684 kg Period Temp Pulse Resp BP Sys/Hutson Pulse Ox Last 24 Hr 97.7 F-98.2 F 60-74 18-20 114-146/76-85 98-98 GENERAL: Middle-aged, cachectic man, awake, alert, a&ox3. no acute distress. Trace jaundice HEAD: Normal with no signs of trauma. BL spider angiomas on cheeks. EYES: Dilated pupils BL, minimally reactive. Trace scleral icterus BL. Extraocular movements intact, conjunctiva clear. No ptosis. ENT: Palatal, subungal jaundice. Ears normal, nares patent, oropharynx clear without exudates, moist mucous membranes. NECK: Trachea midline, full range of motion, supple. LUNGS: Trace crackles in RLL. Otherwise, clear to auscultation bilaterally, no wheezes, no accessory muscle use. HEART: Regular rate and rhythm, S1, S2 without murmur, rub or gallop. ABDOMEN: BL periumbilical vertical scars noted. Soft, nontender, nondistended, normoactive bowel sounds, no guarding, no rebound, no hepatosplenomegaly, no masses. EXTREMITIES: BL fine hand tremors. BL hypopigmentation in forearms on extensor surfaces. 2+ pulses, warm, well-perfused, no edema. NEUROLOGICAL: Cranial nerves II through XII grossly intact. Normal speech, gait not observed. PSYCH: Pleasant, interactive with interviewer, Normal mood, normal affect. SKIN: Warm, dry, normal turgor, no rashes or lesions noted Laboratory Results - last 24 hr CBC, BMP CBC, BMP 08/02/17 06:45 08/01/17 07:10 08/01/17 06:50 08/01/17 08/01/17 06:50 07:10 WBC 3.8 L RBC 2.88 L Hgb 9.3 L Hct 27.6 L MCV 95.8 MCH 32.1 MCHC 33.5 RDW 20.9 H Plt Count 146 MPV 8.5 Neutrophils % 67.6 Lymphocytes % 23.2 Monocytes % 7.7 Eosinophils % 0.9 D Basophils % 0.6 Sodium 138 Potassium 4.2 D Chloride 101 Carbon Dioxide 29 Anion Gap 8 BUN 9 D Creatinine 0.8 Creat Clearance w eGFR > 60 Random Glucose 104 D Calcium 8.8 Phosphorus 4.6 D Magnesium 2.3 D Total Bilirubin 0.4 D AST 21 D ALT 58 D Alkaline Phosphatase 75 D Total Protein 7.0 D Albumin 3.8 D Active Medications Generic Name Dose Route Start Last Admin Trade Name Freq PRN Reason Stop Dose Admin Alprazolam 2 mg 07/29/17 22:00 08/01/17 21:11 Xanax - PO 2 mg HS NIMA Administration Benzocaine/Menthol 1 each 07/28/17 03:50 08/01/17 09:12 Cepacol Lozenge - MM 1 each PRN PRN Administration SORE THROAT Duloxetine HCl 60 mg 08/02/17 10:00 Cymbalta - PO DAILY [facility] Ferrous Gluconate 324 mg 08/02/17 10:00 Fergon - PO DAILY NIMA Folic Acid 1 mg 07/28/17 12:00 08/01/17 09:09 Folic Acid - PO 1 mg DAILY NIAM Administration Guaifenesin 10 ml 07/28/17 10:42 08/01/17 09:11 Robitussin - PO 10 ml Q6H PRN Administration COUGH Levofloxacin 750 mg 08/02/17 10:00 Levaquin PO 08/03/17 23:59 DAILY NIMA Lidocaine 1 patch 07/31/17 16:45 08/01/17 09:10 Lidoderm Patch - TP 1 patch DAILY [facility] Administration Metoprolol Tartrate 25 mg 07/29/17 10:00 08/01/17 09:09 Lopressor - PO 25 mg DAILY NIMA Administration Miscellaneous 1 each 07/30/17 22:00 08/01/17 21:26 Lidoderm Patch Removal MC Not Given DAILY@2200 [facility] Pantoprazole Sodium 40 mg 07/28/17 10:00 08/01/17 09:09 Protonix Packets For Oral Suspension - PO 40 mg DAILY NIMA Administration Thiamine HCl 100 mg 07/28/17 10:00 08/01/17 09:09 Vitamin B1 - PO 100 mg DAILY NIMA Administration Microbiology 07/28/17 00:20 Blood - Peripheral Venous Blood Culture - Final NO GROWTH AFTER 5 DAYS INCUBATION 07/28/17 00:20 Blood - Peripheral Venous Blood Culture - Final NO GROWTH AFTER 5 DAYS INCUBATION 07/29/17 06:49 Nasopharyngeal Swab Influenza Types A,B Antigen (RAH) - Final 07/29/17 06:49 Nasopharyngeal Swab - Final Chest/Ab/pelvis CT 07/29 - Impression: Interstitial and nodular opacities in lower lobes, right more the left, right middle lobe and to a less extent in the right upper lobe, posterior segment likely representing pneumonic infiltrates. There is also consolidation/airspace disease in the right lower lobe, posteriorly consistent with pneumonia. Multiple subcentimeter and borderline mediastinal lymph nodes which are nonspecific. Atrophic calcified pancreas consistent with chronic pancreatitis. 8.5 mm focal low-attenuation density in the pancreatic head. It is unclear whether this represents a low-attenuation pancreatic head lesion or focal dilatation of the common bile duct. Further evaluation with contrast-enhanced MRI of the abdomen and MRCP is needed. Splenomegaly There is no evidence of small bowel obstruction. Watery stools with air-fluid levels in the colon compatible with diarrhea and ileus and without gross wall thickening. Small amount of free fluid in the pelvis and to a lesser extent in the the paracolic gutters ABD MRI 22 : -Markedly limited exam and essentially nondiagnostic MRCP images and nondiagnostic exam for the pancreas due to significant motion. -Heterogeneous atrophied pancreas with questionable pancreatic ductal dilatation and questionable 1.6 cm lesion in the pancreatic uncinate process. Further evaluation with CT of the pancreas - pancreatic protocol is recommended. -No biliary ductal dilatation. -Gallbladder sludge with no stones nor MRI evidence of cholecystitis. -Mild splenomegaly. -Right lower and middle lobe infiltrate in addition to left lower lobe nodular densities. Further evaluation with CT of the chest is recommended. ABD U/S 07/27: Impression: 1. Hepatic steatosis. 2. No evidence of cholelithiasis, acute cholecystitis or biliary ductal dilatation. Moderate volume of sludge within the gallbladder. Moderate gallbladder distention may be physiologic and/or secondary to dyskinesia. Head CT - No acute bleed, mass effects or lesions noted. ABdominal MRCP 07/31 - IMPRESSION: Chronic calcific pancreatitis. A nonspecific 1.3 cm spherical cystic lesion is seen within the pancreatic uncinate process. A small amount of intraluminal debris is noted. This finding may represent a pseudocyst versus a cystic neoplasm. Unless otherwise clinically indicated correlate with close follow-up MRI/MRCP to document stability/resolution. No dilatation of the pancreaticobiliary ductal tract is seen. The gallbladder wall demonstrates borderline thickness diffusely and somewhat increased contrast enhancement diffusely. These findings could be on the basis of acute/recent cholecystitis. If clinically indicated additional evaluation utilizing a radionuclide HIDA scan may be performed. Evaluation for possible choledocholithiasis is limited on this exam due to respiratory motion artifact. Mild splenomegaly. Probable diffuse hepatic steatosis identified on recently performed sonography is difficult to appreciate on the current MRI study. Sonography is somewhat more sensitive in this regard. The partially imaged lower chest demonstrates right basilar and less prominent left basilar opacity suggestive of infiltrates as described on recently performed CT suggestive of infiltrates. Trace bilateral pleural effusions. Head CT 08/01 - Impression: No significant interval change from 07/27/[address] No acute intracranial hemorrhage, mass effects or hydrocephalus. ASSESSMENT/PLAN: 51 yo M with chronic alcohol abuse x 30 years and short term memory loss, admitted with jaundice and grade 2 encephalopathy. #Alcoholic hepatitis w/ Hyperbilirubinemia and Pancytopenia - LFTs completely; T -bili normalized 2.5 -> 0.4 today -LFTs normalized, T bili -Hepatitis panel negative -MRI abdomen 07/31 notable for no pancreaticoductal dilatation; presence of choledolithiasis equivocal; 1.3 cm cystic lesion in uncinate process pseudocyst vs. malignancy -Trend H/H - Cont PPI -GI consulted, Dr. Gilbert aware -Continue to trend LFTs -Monitor for signs of withdrawal; no symptoms currently -IVFs -Thiamine 100mg Daily - Daily coags - S/p EGD 07/31-> Small hiatal hernia, possible gautam's esophagus, portal hypertensive gastropathy and no gastric or esophageal varices noted - Will go for EUS at [facility] with Dr. Arellano #RLL CAP vs Aspiration PNA from Alcohol - WBC 3.8 today; no fevers overnight -RLL infiltrate on CXR -Rocephin d/c'ed due to risk of cholestasis; Day 5 azithromax; started on levaquin tomorrow and 08/03 -Robitussin for cough -flu negative - Suspicious pulmonary nodules note on CT chest; outpt f/u in 2 months - Trend WBC, fever curve #Pancreatic Lesion/Ductal dilatation -ABD MRI 07/31 notable for 1.3 cm cystic lesion (pseudocyst vs. malignancy); no ductal dilatation noted. - Abdominal MRCP 07/31 results as above - f/u results with GI at outpt - Alk phos 75, normalized today; T bili 0.4 #Gautam's esophagus - 07/31 EGD notable for suspected gautam's; portal gastropathy - close outpt f/u with GI - Outpt PPI #Retrograde amnesia - Continue to orient pt - fall risk; bed alarm - 1:1 observation - attempted to move pt closer to nursing station, however HCP declined over weeked. #BL mydriasis- unknown if chronic; pupils poorly reactive - CT scan head 08/01 negative today - F/u as outpt #Macrocytic anemia - s/p 1 unit prbcs; repeat Hgb 9.3 today -Cont. 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 HCP aware, agreeable, all questions answered Plan discussed with attending, Dr. Jossy Jordan, PGY1
[2017-08-02 08:12] LABS: BASO % 0.7 % (0-2.0); HEMATOCRIT 29.3 % (35.4-49); HEMOGLOBIN 9.9 GM/dL (11.7-16.9); LYMPH % 19.5 % (8-40); MCH 31.8 pg (25.7-33.7); MCHC 33.7 g/dl (32.0-35.9); MEAN CELL VOLUME 94.3 fl (80-96); MONO % 8.3 % (3.8-10.2); NEUT % 70.5 % (42.8-82.8); PLATELET COUNT 163 K/MM3 (134-434); RBC 3.11 M/mm3 (4.00-5.60); WHITE BLOOD COUNT 4.7 K/mm3 (4.0-10.0)
[2017-08-02 08:24] LABS: INR 1.04 (0.82-1.09); PROTHROMBIN TIME (PATIENT) 11.7 SEC (9.98-11.88)
[2017-08-02 08:54] LABS: ALK PHOS 264 U/L (45-117); ANION GAP 9 (8-16); BLOOD UREA NITROGEN 6 mg/dL (7-18); CALCIUM 7.7 mg/dL (8.5-10.1); CHLORIDE 102 mmol/L (98-107); CO2 29 mmol/L (21-32); CREATININE 0.6 mg/dL (0.7-1.3); GLUCOSE,RANDOM 109 mg/dL (74-106); POTASSIUM 3.2 mmol/L (3.5-5.1); SGOT/AST 40 U/L (15-37); SGPT/ALT 34 U/L (12-78); SODIUM 140 mmol/L (136-145); TOT PROT 5.9 g/dl (6.4-8.2)
[2017-08-02] MEDS ORDERED: PT OWN MED DRAWER 7, Y5N ONE (09:58)
[2017-08-02] MEDS ORDERED: DULoxetine HCL 30 MG CAPSULE.DR (FP) PO SCH (10:00)
[2017-08-02] MEDS ORDERED: levoFLOXacin 750 MG TABLET PO SCH (10:00)
[2017-08-02] MEDS ORDERED: FERROUS GLUCONATE 324 MG TAB (FP) PO SCH (10:00)
[2017-08-02] MEDS: FOLIC ACID 1 MG TABLET (FP) PO SCH (10:02)
[2017-08-02] MEDS: THIAMINE HCL 100 MG TABLET (FP) PO SCH (10:02)
[2017-08-02] MEDS: METOPROLOL TARTRATE 25 MG TABLET (FP) PO SCH (10:02)
[2017-08-02] MEDS: PANTOPRAZOLE SOD 40 MG SUSPENSION PACKET PO SCH (10:02)
[2017-08-02] MEDS: LIDOCAINE 5% TOPICAL PATCH TP SCH (10:03)
--- NOTE | 2017-08-02 12:21 | PN ---
Progress Note, Physician History of Present Illness: No events. Clinically appears the same. Not in distress. MRCP results noted. EUS as OP this month - Current Medication List Current Medications: Active Medications Alprazolam (Xanax -) 2 mg PO HS [facility] Last Admin: 08/01/17 21:11 Dose: 2 mg Benzocaine/Menthol (Cepacol Lozenge -) 1 each MM PRN PRN PRN Reason: SORE THROAT Last Admin: 08/01/17 09:12 Dose: 1 each Duloxetine HCl (Cymbalta -) 60 mg PO DAILY [facility] Last Admin: 08/02/17 10:02 Dose: 60 mg Ferrous Gluconate (Fergon -) 324 mg PO DAILY [facility] Last Admin: 08/02/17 10:02 Dose: 324 mg Folic Acid (Folic Acid -) 1 mg PO DAILY [facility] Last Admin: 08/02/17 10:02 Dose: 1 mg Guaifenesin (Robitussin -) 10 ml PO Q6H PRN PRN Reason: COUGH Last Admin: 08/01/17 09:11 Dose: 10 ml Levofloxacin (Levaquin) 750 mg PO DAILY [facility] Stop: 08/03/17 23:59 Last Admin: 08/02/17 10:02 Dose: 750 mg Lidocaine (Lidoderm Patch -) 1 patch TP DAILY [facility] Last Admin: 08/02/17 10:03 Dose: Not Given Metoprolol Tartrate (Lopressor -) 25 mg PO DAILY [facility] Last Admin: 08/02/17 10:02 Dose: 25 mg Miscellaneous (Lidoderm Patch Removal) 1 each MC DAILY@2200 [facility] Last Admin: 08/01/17 21:26 Dose: Not Given Pantoprazole Sodium (Protonix Packets For Oral Suspension -) 40 mg PO DAILY [facility] Last Admin: 08/02/17 10:02 Dose: 40 mg Thiamine HCl (Vitamin B1 -) 100 mg PO DAILY [facility] Last Admin: 08/02/17 10:02 Dose: 100 mg - Objective Vital Signs: Vital Signs Temperature 97.7 F 08/02/17 05:46 Pulse Rate 65 08/02/17 05:46 Respiratory Rate 20 08/02/17 05:46 Blood Pressure 114/76 08/02/17 05:46 O2 Sat by Pulse Oximetry (%) 98 08/01/17 20:54 Constitutional: Yes: No Distress, Calm Eyes: Yes: Conjunctiva Clear HENT: Yes: Atraumatic Neck: Yes: Supple Cardiovascular: Yes: Regular Rate and Rhythm Respiratory: Yes: Regular Gastrointestinal: Yes: Soft. No: Ascites, Distention, Melena, Tenderness, Tenderness, Epigastrium, Tenderness, Rebound, Vomiting Neurological: Yes: Alert Labs: CBC, BMP 08/02/17 06:45 08/02/17 06:45 INR, PTT INR 1.04 (0.82-1.09) 08/02/17 06:45 CBCD WBC 4.7 K/mm3 (4.0-10.0) 08/02/17 06:45 RBC 3.11 M/mm3 (4.00-5.60) L 08/02/17 06:45 Hgb 9.9 GM/dL (11.7-16.9) L 08/02/17 06:45 Hct 29.3 % (35.4-49) L 08/02/17 06:45 MCV 94.3 fl (80-96) 08/02/17 06:45 MCHC 33.7 g/dl (32.0-35.9) 08/02/17 06:45 RDW 20.0 % (11.9-15.9) H 08/02/17 06:45 Plt Count 163 K/MM3 (134-434) 08/02/17 06:45 MPV 8.0 fl (7.5-11.1) 08/02/17 06:45 CMP Sodium 140 mmol/L (136-145) 08/02/17 06:45 Potassium 3.2 mmol/L (3.5-5.1) L D 08/02/17 06:45 Chloride 102 mmol/L (98-107) 08/02/17 06:45 Carbon Dioxide 29 mmol/L (21-32) 08/02/17 06:45 Anion Gap 9 (8-16) 08/02/17 06:45 BUN 6 mg/dL (7-18) L D 08/02/17 06:45 Creatinine 0.6 mg/dL (0.7-1.3) L D 08/02/17 06:45 Creat Clearance w eGFR > 60 (>60) 08/02/17 06:45 Calcium 7.7 mg/dL (8.5-10.1) L 08/02/17 06:45 Total Bilirubin 2.0 mg/dL (0.2-1.0) H D 08/02/17 06:45 AST 40 U/L (15-37) H D 08/02/17 06:45 ALT 34 U/L (12-78) D 08/02/17 06:45 Alkaline Phosphatase 264 U/L (45-117) H D 08/02/17 06:45 Total Protein 5.9 g/dl (6.4-8.2) L 08/02/17 06:45 Albumin 2.0 g/dl (3.4-5.0) L D 08/02/17 06:45 Problem List - Problems (1) Wernicke encephalopathy Code(s): E51.2 - WERNICKE'S ENCEPHALOPATHY (2) Alcoholic hepatitis Code(s): K70.10 - ALCOHOLIC HEPATITIS WITHOUT ASCITES (3) Alcohol use disorder Code(s): F10.99 - ALCOHOL USE, UNSP WITH UNSPECIFIED ALCOHOL-INDUCED DISORDER (4) Jaundice Code(s): R17 - UNSPECIFIED JAUNDICE (5) Malnourished Code(s): E46 - UNSPECIFIED PROTEIN-CALORIE MALNUTRITION Assessment/Plan Clinically appears to be at base line MRCP results noted. EUS with FNA as OP. ETOH total abstinence and ongoing counseling
--- NOTE | 2017-08-02 12:22 | PN ---
Teaching Attending Note Name of Resident: Naldo Jordan ATTENDING PHYSICIAN STATEMENT I saw and evaluated the patient. I reviewed the resident's note and discussed the case with the resident. I agree with the resident's findings and plan as documented. SUBJECTIVE:asymptomatic. denies CP, SOB, fever, chills, N/V/C/D OBJECTIVE: Last Vital Signs Temp Pulse Resp BP Pulse Ox 97.7 F 65 20 114/76 98 08/02/17 05:46 08/02/17 05:46 08/02/17 05:46 08/02/17 05:46 08/01/17 20:54 General NAD A&O x2 (self and location) HEENT B/L dilated pupils, response to light, EOMI, no nystagmus, +icteric frenulum + telegenctasia on the face CV S1 S2 RRR no murmur/rub/gallop Lungs CTA B/L no wheezing/rales/rhonchi Abdomen soft NT/ND +hemangioma Extremities + resting tremors, no asterixis ASSESSMENT AND PLAN: 51 yo M with ETOH abuse, short term memory loss, suspected underlying Wernicke' s encephalopathy comes with ETOH binge a week ago, progressive jaundice and found with likely acute alcoholic hepatitis 1. Acute hepatitis with hyperbilirubinemia- likely alcoholic however can not r/ o obstructive process- MRCP repeated with sedation showing chronic calcified pancreas with 1.3cm spherical cytsic lesion within the pancreatic ucinate process which can be pseudocyst vs cystic neoplasm, no dilation within the pancreaticobiliary ductal tract. transaminitis and bilirubienmia trend up today , concern yesterdays labs may have been erroneous. will need outpatient EUS done at [facility] by Dr Arellano. 2. B/L mydriasis with delated pupil response-improved today, more responsive to light. repeat Head CT was negative. 3. Multifocal PNA- saturating well on RA. abx converted to levaquin day 6. will complete 7 day course. 4. Hyponatremia- likely due to hypovolemia vs beer potomania. resolved. 5. Wernickes Encephalopathy- at baseline per girlfriend. on 1:1 observation due to elopement risk and frequent need for re-orientation. cont thiamine/MVI/ folate. will need neuro and psych follow up 6. Macrocytic anemia- due to ETOH. s/p 1 unit PRBC this admission. stable. no indication for transfusion. on iron supplements. 7. Depression- on cymbalta 8. Thrombocytopenia- due to ETOH. now resolved. no signs of bleeding. 9. Barretts esophagitis- s/p EGD on 07/31. with portal HTN no varices. on protonix. will need close GI follow up 10. DVT ppx- SCD. would hold pharmacologic with thrombocytopenia 11. walked 200 ft with PT. spoke with HCP, girlfriend, Arpita Tavares, . discussed about current plans. all questions answered. will be d/c home today. informed of need of multiple follow ups and counselled on need for ETOH cessation for pt.
--- NOTE | 2017-08-02 15:02 | DS ---
Physical Exam: SUBJECTIVE: Patient seen and examined by me this AM - No major events overnight. One BM, no melena, hematochezia or diarrhea. Denies f/c, CP, cough, SOB, n/v, ab pain, vision changes, neuro symptoms. Slept through the night, no wandering. Still on -to-. Plan for discharge today, pick -up at 4pm. OBJECTIVE: Vital Signs Intake & Output 07/30/17 07/31/17 08/01/17 08/02/17 23:59 23:59 23:59 23:59 Intake Total 1150 1900 2150 400 Output Total 200 Balance 1150 1700 2150 400 Weight 58.513 kg 58.377 kg 58.684 kg Period Temp Pulse Resp BP Sys/Hutson Pulse Ox Last 24 Hr 97.7 F-97.9 F 64-74 20-20 114-145/76-88 95-98 PHYSICAL EXAM GENERAL: Middle-aged, cachectic man, awake, alert, a&ox3. no acute distress. Trace jaundice HEAD: Normal with no signs of trauma. BL spider angiomas on cheeks. EYES: Dilated pupils BL, minimally reactive. Trace scleral icterus BL. Extraocular movements intact, conjunctiva clear. No ptosis. ENT: Palatal, subungal jaundice. Ears normal, nares patent, oropharynx clear without exudates, moist mucous membranes. NECK: Trachea midline, full range of motion, supple. LUNGS: Trace crackles in RLL. Otherwise, clear to auscultation bilaterally, no wheezes, no accessory muscle use. HEART: Regular rate and rhythm, S1, S2 without murmur, rub or gallop. ABDOMEN: BL periumbilical vertical scars noted. Soft, nontender, nondistended, normoactive bowel sounds, no guarding, no rebound, no hepatosplenomegaly, no masses. EXTREMITIES: BL fine hand tremors. BL hypopigmentation in forearms on extensor surfaces. 2+ pulses, warm, well-perfused, no edema. NEUROLOGICAL: Cranial nerves II through XII grossly intact. Normal speech, gait not observed. PSYCH: Pleasant, interactive with interviewer, Normal mood, normal affect. SKIN: Warm, dry, normal turgor, no rashes or lesions noted LABS Laboratory Results - last 24 hr CBC, BMP 08/02/17 06:45 08/02/17 06:45 08/02/17 08/02/17 08/02/17 06:45 06:45 06:45 WBC 4.7 RBC 3.11 L Hgb 9.9 L Hct 29.3 L MCV 94.3 MCH 31.8 MCHC 33.7 RDW 20.0 H Plt Count 163 MPV 8.0 Neutrophils % 70.5 Lymphocytes % 19.5 Monocytes % 8.3 Eosinophils % 1.0 Basophils % 0.7 PT with INR 11.70 INR 1.04 Sodium 140 Potassium 3.2 L D Chloride 102 Carbon Dioxide 29 Anion Gap 9 BUN 6 L D Creatinine 0.6 L D Creat Clearance w eGFR > 60 Random Glucose 109 H Calcium 7.7 L Total Bilirubin 2.0 H D AST 40 H D ALT 34 D Alkaline Phosphatase 264 H D Total Protein 5.9 L Albumin 2.0 L D Microbiology 07/28/17 00:20 Blood - Peripheral Venous Blood Culture - Final NO GROWTH AFTER 5 DAYS INCUBATION 07/28/17 00:20 Blood - Peripheral Venous Blood Culture - Final NO GROWTH AFTER 5 DAYS INCUBATION 07/29/17 06:49 Nasopharyngeal Swab Influenza Types A,B Antigen (RAH) - Final 07/29/17 06:49 Nasopharyngeal Swab - Final Chest/Ab/pelvis CT 07/29 - Impression: Interstitial and nodular opacities in lower lobes, right more the left, right middle lobe and to a less extent in the right upper lobe, posterior segment likely representing pneumonic infiltrates. There is also consolidation/airspace disease in the right lower lobe, posteriorly consistent with pneumonia. Multiple subcentimeter and borderline mediastinal lymph nodes which are nonspecific. Atrophic calcified pancreas consistent with chronic pancreatitis. 8.5 mm focal low-attenuation density in the pancreatic head. It is unclear whether this represents a low-attenuation pancreatic head lesion or focal dilatation of the common bile duct. Further evaluation with contrast-enhanced MRI of the abdomen and MRCP is needed. Splenomegaly There is no evidence of small bowel obstruction. Watery stools with air-fluid levels in the colon compatible with diarrhea and ileus and without gross wall thickening. Small amount of free fluid in the pelvis and to a lesser extent in the the paracolic gutters ABD MRI / : -Markedly limited exam and essentially nondiagnostic MRCP images and nondiagnostic exam for the pancreas due to significant motion. -Heterogeneous atrophied pancreas with questionable pancreatic ductal dilatation and questionable 1.6 cm lesion in the pancreatic uncinate process. Further evaluation with CT of the pancreas - pancreatic protocol is recommended. -No biliary ductal dilatation. -Gallbladder sludge with no stones nor MRI evidence of cholecystitis. -Mild splenomegaly. -Right lower and middle lobe infiltrate in addition to left lower lobe nodular densities. Further evaluation with CT of the chest is recommended. ABD U/S 07/27: Impression: 1. Hepatic steatosis. 2. No evidence of cholelithiasis, acute cholecystitis or biliary ductal dilatation. Moderate volume of sludge within the gallbladder. Moderate gallbladder distention may be physiologic and/or secondary to dyskinesia. Head CT - No acute bleed, mass effects or lesions noted. ABdominal MRCP 07/31 - IMPRESSION: Chronic calcific pancreatitis. A nonspecific 1.3 cm spherical cystic lesion is seen within the pancreatic uncinate process. A small amount of intraluminal debris is noted. This finding may represent a pseudocyst versus a cystic neoplasm. Unless otherwise clinically indicated correlate with close follow-up MRI/MRCP to document stability/resolution. No dilatation of the pancreaticobiliary ductal tract is seen. The gallbladder wall demonstrates borderline thickness diffusely and somewhat increased contrast enhancement diffusely. These findings could be on the basis of acute/recent cholecystitis. If clinically indicated additional evaluation utilizing a radionuclide HIDA scan may be performed. Evaluation for possible choledocholithiasis is limited on this exam due to respiratory motion artifact. Mild splenomegaly. Probable diffuse hepatic steatosis identified on recently performed sonography is difficult to appreciate on the current MRI study. Sonography is somewhat more sensitive in this regard. The partially imaged lower chest demonstrates right basilar and less prominent left basilar opacity suggestive of infiltrates as described on recently performed CT suggestive of infiltrates. Trace bilateral pleural effusions. Head CT 08/01 - Impression: No significant interval change from 07/27/[address] No acute intracranial hemorrhage, mass effects or hydrocephalus. EGD 07/31-> Small hiatal hernia, possible gautam's esophagus, portal hypertensive gastropathy and no gastric or esophageal varices noted Consults: GI- Seen by Dr. Gilbert HOSPITAL COURSE: Pre hospital course: The patient is a 51 year old male with past medical history of alcohol abuse, short term memory loss who is brought in by his for yellow discoloration of skin . The patient is unable to provide history and all history is provided from . She states the patient usually drinks O'Doules but in the past month he has been drinking regular alcohol. Within this time period, the noticed the patient is having increased, tremors, frequent falls and yellow discoloration of skin. . The patient was seen by his PCP and had routine blood work performed which noted elevated LFTs. He was advised to come to the ED for further evaluation. The patients last drink was noted to be yesterday. Patient also reports that he was having a cough and has given 2 tab of Tylenol. Denies fever, nausea, vomiting, abdominal distension. Denies shortness of breath. Don't know the color of stool and urine. Hospital course: Date of Admission:07/28/17 Date of Discharge: 08/02/17 Pt medically stable and cleared for discharge with outpt follow-up with Dr. Gilbert in one week to further discuss the results of inpatient EGD and plan for EUS at outpt. Follow up with PCP, psych and neuro also provided. Discharge Summary Reason For Visit: PENUMONIA JAUNDICE ALCOHOL USE DISORDER Current Active Problems Alcohol use disorder (Acute) Alcoholic hepatitis (Acute) Fall (Acute) Jaundice (Acute) Malnourished (Acute) Pancreatic pseudocyst (Acute) Pneumonia (Acute) Wernicke encephalopathy (Acute) Chronic pancreatitis (Chronic) Condition: Guarded - Instructions Diet, Activity, Other Instructions: During your stay you were treated for alcoholic hepatitis and elevated bilirubin levels, a chemical excreted by the liver through your biliary system. You received multiple abdominal imaging studies, notable for a suspicious mass in your pancreas. You will require further endoscopic imaging of your hepatobiliary system to assess the source of your elevated bilirubin levels. Medications: No new medications were added to your home regimen. Please continue taking all other home medication as previously prescribed. Follow-ups: Please schedule an appointment to see your primary care physician in one week for further management of your outpatient medication regimen. You should have your labs repeated to evaluate your blood counts and liver. You should also have a repeat of your iron studies in 3 months to evaluate if you need to continue taking this medication. During your visit, you were seen by Dr. Gilbert who performed an esophageal endoscopy. Please schedule an appointment to follow-up with him in his clinic in one week to review the results of your procedure. His contact information has been provided in this packet. During your stay, you received a CT scan notable for multiple suspicious lung nodules. You will need to receive a repeat CT scan in 6-8 weeks to reassess these nodules. Please bring this to the attention of your primary care provider. You will require an endoscopic ultrasound evaluation of your biliary system and further evaluate a lesions seen on your pancreas with Dr. Arellano at [facility] to further assess the source of your elevated bilirubin levels. Please coordinate this study with your primary care provider. Referral for a psychiatrist and neurologist have been provided. Activity: Please refrain from excessive alcohol consumption upon leaving the hospital, as this can damage your liver and exacerbate the symptoms of liver failure. Please return to the hospital if you experience any of the following symptoms: - Persistent yellowing of your skin - Coughing or vomiting blood - Bloody or dark, tarry stools - Any new or concerning symptoms Referrals: Jose Osullivan MD [Staff Physician] - (psychiatry) Frank Cosme MD [Primary Care Provider] - 1 Week Eric Vyas DO [Staff Physician] - (Neurology) Ravi Gilbert MD [Staff Physician] - 1 Week (GI) Disposition: HOME - Home Medications Comprehensive Discharge Medication List: Ambulatory Orders Duloxetine [Cymbalta -] 60 mg PO DAILY #0 capsule.dr 12/06/11 Folic Acid - 1 mg PO DAILY #0 tablet 12/06/11 Pantoprazole Sodium [Protonix -] 40 mg PO DAILY #0 tablet.ec 12/06/11 Metoprolol Tartrate [Lopressor -] 25 mg PO DAILY 07/28/17
[2017-08-02 15:15] VITALS: BP 148/64; PULSE 77
== END 2017-08-02 16:52 | disposition home or self-care (01) | DRG 432 ==
LOC: JER 21:35 → JERBED 07-28 00:12 → UNDOADMIN 07-28 00:45 → JERBED 07-28 00:45 → J6S 07-28 02:51
PROVIDERS: ADMIT Internal Medicine; ATTEND Internal Medicine
DX: K70.10 Alcoholic hepatitis without ascites (principal); J18.9 Pneumonia, unspecified organism; E87.1 Hypo-osmolality and hyponatremia; K86.3 Pseudocyst of pancreas; K86.1 Other chronic pancreatitis; E51.2 Wernicke's encephalopathy; E46 Unspecified protein-calorie malnutrition; Z68.1 Body mass index [BMI] 19.9 or less, adult; K76.6 Portal hypertension; D61.818 Other pancytopenia; D53.9 Nutritional anemia, unspecified; D69.6 Thrombocytopenia, unspecified; M54.9 Dorsalgia, unspecified; K20.8 Other esophagitis; K22.70 Barrett's esophagus without dysplasia; I48.91 Unspecified atrial fibrillation; F41.8 Other specified anxiety disorders; E87.6 Hypokalemia
CPT/HCPCS: 36415; 36430; 70450-TC; 71045-TC; 71260-TC; 74177-TC; 74181-TC; 74182-TC; 74183-TC; 76705-TC; 80048; 80051; 80053; 80074; 80076; 80307; 81003; 82105; 82140; 82247; 82248; 82607; 82746; 83735; 83930; 83935; 84100; 84443; 85025; 85027; 85610; 86850; 86900; 86901; 86922; 87040; 87804; 88305-TC; 93005; 93010; 97116-GP; 97161-GP; 99283-25; P9038; P9058